=== PATIENT | female | born 1960 | race African-American/Black ===

== ENCOUNTER 2017-05-24 16:11 | Inpatient (IN) | payer OTHER ==
[2017-05-24] VITALS (8 sets, daily range): BP systolic 198–247; BP diastolic 82–116; PULSE 53–76; RESP 16–23; TEMP 98.4; O2SAT 98–100
[~2017-05-24] VITALS: Ht 167.6 cm; Wt 121.0 kg
[2017-05-24] MEDS ORDERED: VANCOMYCIN INJ 1,000 MG in SODIUM CHLOR 0.9% 250 ML INJ 250 ML IV ONE (19:30)
[2017-05-24] MEDS ORDERED: SODIUM CHLORIDE 0.9% FLUSH 10 ML FLUSH IV FLUSH PRN ×2 (19:30→22:00)
--- NOTE | 2017-05-24 19:47 | RADRPT ---
EXAM DATE/TIME: 05/24/2017 19:30 [facility] COMPARISON: No previous studies available for comparison. INDICATIONS : Ulcer to lateral lower leg. Possible Osteomyelitis. MEDICAL HISTORY : Diabetes mellitus type I. SURGICAL HISTORY : None. ENCOUNTER: Initial ACUITY: 1 month PAIN SCORE: 7/10 LOCATION: Right lateral FINDINGS: Two view examination of the right tibia demonstrates no evidence of fracture or dislocation. There i s soft tissue injury in the lateral distal calf region. No significant periosteal reaction or bony er osion. Bony mineralization is normal. The soft tissue structures are intact. CONCLUSION: 1. No plain radiograph evidence for osteomyelitis as questioned. Kenney Bolanos MD on May 24, 2017 at 19:45 Board Certified Radiologist. This report was verified electronically.
--- NOTE | 2017-05-24 20:37 | PD ---
HPI Chief Complaint: Skin Problem Time Seen by Provider: 19:13 Travel History International Travel<30 days: No Contact w/Intl Traveler<30days: No Traveled to known affect area: No History of Present Illness HPI 57-year-old female with history of hypertension, insulin-dependent diabetes, here for evaluation of right leg wound. The patient reports that the wound started in November 2016 after a scratch, and has progressively become larger. She went to an urgent care facility today to have it evaluated and was sent here. Patient reports that the pain is 5 out of 10, constant, worse at night' s. She denies any fevers or chills. No other wounds. PFSH Past Medical History Diabetes: Yes Social History Tobacco Use: No Allergies-Medications (Allergen,Severity, Reaction): Coded Allergies: amlodipine (Verified Allergy, Unknown, 05/24/17) Reported Meds & Prescriptions Reported Meds & Active Scripts Active Reported Quinapril (Quinapril HCl) 5 Mg Tab 5 Mg PO BID Diltiazem (Diltiazem HCl) 60 Mg Tab 60 Mg PO QID Lantus Inj (Insulin Glargine) 1,000 Unit/10 Ml Vial 34 Units SQ HS Humalog Inj (Insulin Human Lispro) 1,000 Unit/10 Ml Vial 2-12 Units SQ ACHS Max dose at bedtime:( )units; sugars < 70,(0)units; sugars 150-199,(2)units; sugars 200-249,(4)units; sugars 250-299,(7)units; sugars 300-349,(10)units; sugars more than 349,(12)units. Hydrochlorothiazide 50 Mg Tab 50 Mg PO DAILY Synthroid (Levothyroxine Sodium) 175 Mcg Tab 175 Mcg PO DAILY Metformin (Metformin HCl) 1,000 Mg Tab 1,000 Mg PO BIDPC Review of Systems Except as stated in HPI: all other systems reviewed are Neg Physical Exam Narrative GENERAL: Well-developed, well-nourished, comfortable, no apparent distress. SKIN: Focused skin assessment warm/dry. Approximately 5x6 cm circular ulcerative wound to the right lateral/distal leg with purulent drainage with mild surrounding warmth and erythema, no crepitus. HEAD: Atraumatic. Normocephalic. EYES: Pupils equal and round. No scleral icterus. No injection or drainage. ENT: Mucous membranes pink and moist. NECK: Trachea midline. No JVD. CARDIOVASCULAR: Regular rate and rhythm. No murmur appreciated. RESPIRATORY: No accessory muscle use. Clear to auscultation. Breath sounds equal bilaterally. GASTROINTESTINAL: Abdomen soft, non-tender, nondistended. MUSCULOSKELETAL: No obvious deformities. No clubbing. No cyanosis. No edema. NEUROLOGICAL: Awake and alert. No obvious cranial nerve deficits. Motor grossly within normal limits. Normal speech. PSYCHIATRIC: Appropriate mood and affect; insight and judgment normal. Data Data Last Documented VS Vital Signs Date Time Temp Pulse Resp B/P (MAP) Pulse Ox O2 Delivery O2 Flow Rate FiO2 05/24/17 21:49 64 18 100 Room Air 220/116 (150) 05/24/17 16:12 98.4 Orders Orders Complete Blood Count With Diff (05/24/17 19:20) Comprehensive Metabolic Panel (05/24/17 19:20) Prothrombin Time / Inr (Pt) (05/24/17 19:20) Act Partial Throm Time (Ptt) (05/24/17 19:20) Iv Access Insert/Monitor (05/24/17 19:20) Ecg Monitoring (05/24/17 19:20) Oximetry (05/24/17 19:20) Sodium Chloride 0.9% Flush (Ns Flush) (05/24/17 19:30) Wound Culture And Gram Stain (05/24/17 19:20) Westergren Sedimentation Rate (05/24/17 19:20) C-Reactive Protein (Crp) (05/24/17 19:20) Tibia/Fibula (Ap/Lat) (05/24/17 ) Vancomycin Inj (Vancomycin Inj) (05/24/17 19:30) Hydralazine Inj (Apresoline Inj) (05/24/17 22:00) Bedside Glucose KATRINA.CSUGAR (05/24/17 21:47) Blood Glucose Goal (Criteria) (05/24/17 21:47) Hypoglycemia 70 Mg/Dl Or < (05/24/17 21:47) Notify Dr: Other (05/24/17 21:47) Dextrose 50% In Casie (Vial) Inj (D50w (Vi (05/24/17 22:00) Glucagon Inj (Glucagon Inj) (05/24/17 22:00) Insulin Aspart Supplemtl Scale (Novolog (2/24/18 08:00) Vancomycin Consult Pharmacy (Vancomycin (05/24/17 22:00) Cefepime Inj (Maxipime Inj) (05/24/17 22:00) Place In Observation (05/24/17 ) Vital Signs (Adult) Q4H (05/24/17 21:47) Activity Oob With Assistance (05/24/17 21:47) Intake + Output KATRINA.QSHIFT (05/24/17 21:47) Diet 1800 Ada Cons Carb (05/25/17 Breakfast) Sodium Chloride 0.9% Flush (Ns Flush) (05/24/17 22:00) Sodium Chloride 0.9% Flush (Ns Flush) (05/25/17 09:00) Ondansetron Inj (Zofran Inj) (05/24/17 22:00) Comprehensive Metabolic Panel (05/25/17 06:00) Complete Blood Count With Diff (05/25/17 06:00) Case Management Consult (05/24/17 21:47) Consult Wound / Ostomy Nurse (05/24/17 21:47) Heparin Inj (Heparin Inj) (05/25/17 09:00) Acetaminophen (Tylenol) (05/24/17 22:00) Acetamin-Hydrocod 325-5 Mg ([place] 5-325 (05/24/17 22:00) Morphine Inj (Morphine Inj) (05/24/17 22:00) Docusate Sodium-Senna (Donna-Colace) (05/25/17 09:00) Magnesium Hydroxide Liq (Milk Of Magnesi (05/24/17 22:00) Sennosides (Senokot) (05/24/17 22:00) Bisacodyl Supp (Dulcolax Supp) (05/24/17 22:00) Lactulose Liq (Lactulose Liq) (05/24/17 22:00) Diltiazem (Cardizem) (05/25/17 09:00) Hydrochlorothiazide (Hydrodiuril) (05/25/17 09:00) Metformin (Glucophage) (05/25/17 09:00) Lisinopril (Prinivil) (05/25/17 09:00) Levothyroxine (Synthroid) (05/25/17 06:00) Admit Order (Ed Use Only) (05/24/17 21:50) Insulin Detemir Inj (Levemir Inj) (05/24/17 22:00) Labs Laboratory Tests Test 05/24/17 20:31 White Blood Count 7.7 TH/MM3 Red Blood Count 4.53 MIL/MM3 Hemoglobin 13.0 GM/DL Hematocrit 39.0 % Mean Corpuscular Volume 86.1 FL Mean Corpuscular Hemoglobin 28.7 PG Mean Corpuscular Hemoglobin Concent 33.3 % Red Cell Distribution Width 14.8 % Platelet Count 446 TH/MM3 Mean Platelet Volume 7.8 FL Neutrophils (%) (Auto) 54.0 % Lymphocytes (%) (Auto) 34.5 % Monocytes (%) (Auto) 7.3 % Eosinophils (%) (Auto) 3.4 % Basophils (%) (Auto) 0.8 % Neutrophils # (Auto) 4.2 TH/MM3 Lymphocytes # (Auto) 2.7 TH/MM3 Monocytes # (Auto) 0.6 TH/MM3 Eosinophils # (Auto) 0.3 TH/MM3 Basophils # (Auto) 0.1 TH/MM3 CBC Comment DIFF FINAL Differential Comment Erythrocyte Sedimentation Rate 13 mm/hr Prothrombin Time 10.1 SEC Prothromb Time International Ratio 1.0 RATIO Activated Partial Thromboplast Time 24.1 SEC Blood Urea Nitrogen 12 MG/DL Creatinine 0.90 MG/DL Random Glucose 80 MG/DL Total Protein 8.0 GM/DL Albumin 4.0 GM/DL Calcium Level 9.5 MG/DL Alkaline Phosphatase 104 U/L Aspartate Amino Transf (AST/SGOT) 14 U/L Alanine Aminotransferase (ALT/SGPT) 21 U/L Total Bilirubin 0.3 MG/DL Sodium Level 139 MEQ/L Potassium Level 3.3 MEQ/L Chloride Level 103 MEQ/L Carbon Dioxide Level 31.1 MEQ/L Anion Gap 5 MEQ/L Estimat Glomerular Filtration Rate 78 ML/MIN C-Reactive Protein 0.82 MG/DL [facility] Medical Decision Making Medical Screen Exam Complete: Yes Emergency Medical Condition: Yes Differential Diagnosis Diabetic foot wound, osteomyelitis, cellulitis Narrative Course Initial vital signs show heart rate 63, blood pressure 231/98, pulse ox 99% on room air, oral temp of 98.4 from a. CBC is essentially unremarkable. CMP is remarkable for potassium 3.3, otherwise unremarkable. ESR is 13. CRP is 0.82. Right tib-fib x-ray: No plain radiograph evidence for osteomyelitis. The patient was given a dose of IV vancomycin. She does have a pretty significant sized ulceration to her right distal leg with mild surrounding warmth and erythema as well as some purulent drainage. There is moderate tenderness around the wound. There is no crepitus. Patient also has a significantly high blood pressure. She is not displaying any signs or symptoms of hypertensive crisis. Patient will be admitted for further IV antibiotic therapy, blood pressure control, and likely podiatry consultation regarding her diabetic leg wound. Case discussed with hospitalist Dr. Prieto who will admit the patient to her service. Diagnosis Primary Impression: Diabetic leg ulcer Additional Impression: Uncontrolled hypertension Admitting Information Admitting Physician Requests: Observation Cole Valencia MD May 24, 2017 20:37
[2017-05-24 21:01] LABS: AUTOMATED NEUTROPHIL # 4.2 TH/MM3 (1.8-7.7); BASOPHIL # 0.1 TH/MM3 (0-0.2); BASOPHIL % 0.8 % (0.0-2.0); EOSINOPHIL # 0.3 TH/MM3 (0-0.4); EOSINOPHIL % 3.4 % (0.0-4.0); LYMPH % 34.5 % (9.0-44.0); LYMPHOCYTE # 2.7 TH/MM3 (1.0-4.8); MEAN CELL VOLUME 86.1 FL (80.0-100.0); MEAN CORPUSCULAR HEMOGLOBIN 28.7 PG (27.0-34.0); MEAN CORPUSCULAR HGB CONC 33.3 % (32.0-36.0); MEAN PLATELET VOLUME 7.8 FL (7.0-11.0); MONO % 7.3 % (0.0-8.0); MONOCYTE # 0.6 TH/MM3 (0-0.9); PLATELET COUNT 446 TH/MM3 (150-450); RED BLOOD COUNT 4.53 MIL/MM3 (4.00-5.30); RED CELL DISTRIBUTION WIDTH 14.8 % (11.6-17.2); WHITE BLOOD COUNT 7.7 TH/MM3 (4.0-11.0)
[2017-05-24] MEDS ORDERED: LANTUS2P SQ (21:04)
[2017-05-24] MEDS ORDERED: HYDR50TA3 PO (21:04)
[2017-05-24] MEDS ORDERED: HUMALOG SQ (21:04)
[2017-05-24] MEDS ORDERED: METF1000 PO (21:04)
[2017-05-24] MEDS ORDERED: SYNT175T PO (21:04)
[2017-05-24] MEDS ORDERED: QUIN5TAB6 PO (21:04)
[2017-05-24] MEDS ORDERED: DILT60TA PO (21:04)
[2017-05-24 21:09] LABS: PROTHROMBIN TIME - PATIENT 10.1 SEC (9.8-11.6)
[2017-05-24 21:15] LABS: BICARBONATE 31.1 MEQ/L (21.0-32.0); BLOOD UREA NITROGEN 12 MG/DL (7-18); CALCIUM 9.5 MG/DL (8.5-10.1); CHLORIDE 103 MEQ/L (98-107); GLOMERULAR FILTRATION RATE 78 ML/MIN (>89); GLUCOSE,RANDOM 80 MG/DL (74-106); SODIUM (NA) 139 MEQ/L (136-145)
[2017-05-24 21:17] LABS: ALT (GPT) 21 U/L (10-53); AST (GOT) 14 U/L (15-37); C-REACTIVE PROTEIN 0.82 MG/DL (0.00-0.30)
[2017-05-24 21:19] LABS: ALKALINE PHOSPHATASE 104 U/L (45-117); TOTAL BILIRUBIN ADULT 0.3 MG/DL (0.2-1.0)
--- NOTE | 2017-05-24 21:50 | HHI.HP ---
HPI Service [facility] Primary Care Physician No Primary Care Physician Admission Diagnosis Diagnoses: (1) Diabetic foot infection Diagnosis: Principal (2) HTN (hypertension) Diagnosis: Principal (3) DM (diabetes mellitus) Diagnosis: Principal Travel History International Travel<30 Days: No Contact w/Intl Traveler <30 Da: No Traveled to Known Affected Are: No History of Present Illness This is a 57-year-old female with a PMH of HTN and DM who presented to the ER with complaints of right leg wound x2-3 months. States symptoms have been intermittent over the last several months, has not sought medical attention until now. Denies fever or chills. States she was seen at Urgent Care today and referred to the ER. Reports associated leg pain, sharp, intermittent, 6/10 , non-radiating, worse w/ movement/touch. On arrival, BP 240/105, HR 59, O2 sat 98% on RA, Afebrile. CBC unremarkable. Chemistry essentially unremarkable. CRP 0.82. I 1.0. Tib-fib X-ray with no evidence of osteoarthritis. S/p Vanc in ER. Review of Systems Except as stated in HPI: all other systems reviewed are Neg ROS: 14 point review of systems otherwise negative. Past Family Social History Past Medical History PMH: HTN and DM Past Surgical History PAST SURGICAL HISTORY: None Allergies: Coded Allergies: amlodipine (Verified Allergy, Unknown, 05/24/17) Family History PAST FAMILY HISTORY: Reviewed. No h/o DM or CAD Social History PAST SOCIAL HISTORY: Negative for alcohol, tobacco or drugs. Physical Exam Vital Signs Vital Signs Date Time Temp Pulse Resp B/P (MAP) Pulse Ox O2 Delivery O2 Flow Rate FiO2 05/24/17 21:04 61 23 229/104 (145) 100 Room Air 05/24/17 20:44 59 16 240/105 (150) 98 Room Air 05/24/17 20:13 76 16 98 Room Air 05/24/17 16:12 98.4 63 16 231/98 (142) 99 Room Air Physical Exam PE: GENERAL: Very pleasant middle-aged white female in no acute distress. HEENT: PERRLA, EOMI. No scleral icterus or conjunctival pallor. No lid lag or facial droop. CARDIOVASCULAR: Regular rate and rhythm. No obvious murmurs to auscultation. No chest tenderness to palpation. RESPIRATORY: No obvious rhonchi or wheezing. Clear to auscultation. Breath sounds equal bilaterally. GASTROINTESTINAL: Abdomen soft, non-tender, nondistended. BS normal. MUSCULOSKELETAL: Extremities without clubbing, cyanosis, or edema. No obvious deformities. RLE w/ ulcer, surrounding erythema, purulent drainage. Pulses intact. NEUROLOGICAL: Awake, alert and oriented x4. No focal neurologic deficits. Moving both upper and lower extremities spontaneously. Laboratory Laboratory Tests Test 05/24/17 20:31 White Blood Count 7.7 Red Blood Count 4.53 Hemoglobin 13.0 Hematocrit 39.0 Mean Corpuscular Volume 86.1 Mean Corpuscular Hemoglobin 28.7 Mean Corpuscular Hemoglobin Concent 33.3 Red Cell Distribution Width 14.8 Platelet Count 446 Mean Platelet Volume 7.8 Neutrophils (%) (Auto) 54.0 Lymphocytes (%) (Auto) 34.5 Monocytes (%) (Auto) 7.3 Eosinophils (%) (Auto) 3.4 Basophils (%) (Auto) 0.8 Neutrophils # (Auto) 4.2 Lymphocytes # (Auto) 2.7 Monocytes # (Auto) 0.6 Eosinophils # (Auto) 0.3 Basophils # (Auto) 0.1 CBC Comment DIFF FINAL Differential Comment Erythrocyte Sedimentation Rate 13 Prothrombin Time 10.1 Prothromb Time International Ratio 1.0 Activated Partial Thromboplast Time 24.1 Blood Urea Nitrogen 12 Creatinine 0.90 Random Glucose 80 Total Protein 8.0 Albumin 4.0 Calcium Level 9.5 Alkaline Phosphatase 104 Aspartate Amino Transf (AST/SGOT) 14 Alanine Aminotransferase (ALT/SGPT) 21 Total Bilirubin 0.3 Sodium Level 139 Potassium Level 3.3 Chloride Level 103 Carbon Dioxide Level 31.1 Anion Gap 5 Estimat Glomerular Filtration Rate 78 C-Reactive Protein 0.82 Date/Time Source Procedure Growth Status 05/24/17 20:31 Wound Leg Gram Stain Pending Received 05/24/17 20:31 Wound Leg Wound Culture Pending Received Result Diagram: 05/24/17203005/24/172030 Caprindouglas VTE Risk Assessment Caprini VTE Risk Assessment: No/Low Risk (score <= 1) Caprini Risk Assessment Model Point Value = 1 Point Value = 2 Point Value = 3 Point Value = 5 Age 41-60 Minor surgery BMI > 25 kg/m2 Swollen legs Varicose veins or History of unexplained or recurrent spontaneous Oral contraceptives or hormone replacement Sepsis (< 1 month) Serious lung disease, including pneumonia (< 1 month) Abnormal pulmonary function Acute myocardial infarction Congestive heart failure (< 1 month) History of inflammatory bowel disease Medical patient at bed rest Age 61-74 Arthroscopic surgery Major open surgery (> 45 min) Laparoscopic surgery (> 45 min) Malignancy Confined to bed (> 72 hours) Immobilizing plaster cast Central venous access Age >= 75 History of VTE Family history of VTE Factor V Leiden Prothrombin [id number] Lupus anticoagulant Anticardiolipin antibodies Elevated serum homocysteine Heparin-induced thrombocytopenia Other congenital or acquired thrombophilia Stroke (< 1 month) Elective arthroplasty Hip, pelvis, or leg fracture Acute spinal cord injury (< 1 month) Prophylaxis Regimen Total Risk Factor Score Risk Level Prophylaxis Regimen 0-1 Low Early ambulation 2 Moderate Order ONE of the following: *Sequential Compression Device (SCD) *Heparin 5000 units SQ BID 3-4 Higher Order ONE of the following medications: *Heparin 5000 units SQ TID *Enoxaparin/Lovenox 40 mg SQ daily (WT < 150 kg, CrCl > 30 mL/min) *Enoxaparin/Lovenox 30 mg SQ daily (WT < 150 kg, CrCl > 10-29 mL/min) *Enoxaparin/Lovenox 30 mg SQ BID (WT < 150 kg, CrCl > 30 mL/min) AND/OR *Sequential Compression Device (SCD) 5 or more Highest Order ONE of the following medications: *Heparin 5000 units SQ TID (Preferred with Epidurals) *Enoxaparin/Lovenox 40 mg SQ daily (WT < 150 kg, CrCl > 30 mL/min) *Enoxaparin/Lovenox 30 mg SQ daily (WT < 150 kg, CrCl > 10-29 mL/min) *Enoxaparin/Lovenox 30 mg SQ BID (WT < 150 kg, CrCl > 30 mL/min) AND *Sequential Compression Device (SCD) Assessment and Plan Problem List: (1) Diabetic foot infection ICD Code: E11.69 - Type 2 diabetes mellitus with other specified complication; L08.9 - Local infection of the skin and subcutaneous tissue, unspecified (2) HTN (hypertension) ICD Code: I10 - Essential (primary) hypertension (3) DM (diabetes mellitus) ICD Code: E11.9 - Type 2 diabetes mellitus without complications Assessment and Plan A/P: 1. Diabetic Foot Infection: ulcer w/ surrounding cellulitis, ongoing for approx 2-3mo per patient. Tib-Fib X-ray negative for Osteomyelitis, images reviewed by me. Afebrile, no leukocytosis. Follow up Wound Culture, Continue IV Abx, Wound Management consult for further eval/treatment. 2. HTN: Uncontrolled. BP 230-240's systolic, reports compliance w/ medications, states has no PCP but has 3mo prescription from last visit. S/p Hydralazine w/ persistent hypertension. Hydralazine 10mg IV x1 now, resume home medications, monitor BP. 3. DM: Sliding scale w/ Accu-Cheks, resume home Metformin and Insulin. 4. DVT Prophylaxis: Heparin sq 5. Social work for d/c planning as needed. 6. Case discussed w/ ER physician at length, labs/records/imaging reviewed by me. Darlyn Prieto MD May 24, 2017 21:50
[2017-05-24] MEDS ORDERED: GADODIAMIDE PF 287 MG/ML 20 ML VIAL (for RAD MRI) IVCONTRAST ONE (21:53)
[2017-05-24] MEDS ORDERED: DEXTROSE 50% IN WATER 50 ML VIAL(D50) IV PUSH PRN (22:00)
[2017-05-24] MEDS ORDERED: GLUCAGON 1 MG/ML VIAL OTHER PRN (22:00)
[2017-05-24] MEDS ORDERED: Vancomycin Consult Pharmacy 1 EA OTHER SCH (22:00)
[2017-05-24] MEDS ORDERED: ONDANSETRON HCL 4 MG/2 ML VIAL IVP PRN (22:00)
[2017-05-24] MEDS ORDERED: MAGNESIUM HYDROXIDE SUSP 30 ML CUP PO PRN (22:00)
[2017-05-24] MEDS ORDERED: BISACODYL 10 MG SUPP RECTAL PRN (22:00)
[2017-05-24] MEDS ORDERED: hydrALAZINE HCL 20 MG/ML VIAL IV PUSH ONE (22:00)
[2017-05-24] MEDS ORDERED: LACTULOSE SYRUP 20 GM/30 ML CUP PO PRN (22:00)
[2017-05-24] MEDS ORDERED: SENNOSIDES 8.6 MG TAB PO PRN (22:00)
[2017-05-24] MEDS ORDERED: MORPHINE SULFATE 2 MG/ML INJ IV PUSH PRN (22:00)
[2017-05-24] MEDS: CEFEPIME INJ 1,000 MG in SODIUM CHLORIDE 0.9% INJ 100 ML IV SCH (22:10)
[2017-05-24] MEDS: INSULIN DETEMIR 100 UNITS/ML VIAL SQ SCH (22:11)
[2017-05-25] VITALS (10 sets, daily range): BP systolic 160–182; BP diastolic 40–84; PULSE 64–82; RESP 16–20; TEMP 97.9–98.5; O2SAT 95–100
[2017-05-25] MEDS ORDERED: hydrALAZINE HCL 20 MG/ML VIAL IV PUSH ONE
[2017-05-25] MEDS ORDERED: ENALAPRILAT 2.5 MG/2 ML VIAL IV PUSH ONE (04:00)
[2017-05-25] MEDS: ACETAMINOPHEN 325 MG TAB PO PRN (04:40)
[2017-05-25] MEDS: VANCOMYCIN INJ 1,750 MG in SODIUM CHLORID 0.9% 500 ML INJ 500 ML IV SCH (04:41)
[2017-05-25] MEDS: LEVOTHYROXINE SODIUM 150 MCG TAB PO SCH (06:29)
[2017-05-25] MEDS: LEVOTHYROXINE SODIUM 25 MCG TAB PO SCH (06:29)
[2017-05-25] MEDS: INSULIN ASPART SUPPLEMENTAL SCALE SQ SCH ×4 (08:31→21:08)
[2017-05-25 08:35] LABS: ALBUMIN 3.3 GM/DL (3.4-5.0); ALKALINE PHOSPHATASE 85 U/L (45-117); ALT (GPT) 19 U/L (10-53); AST (GOT) 14 U/L (15-37); BICARBONATE 25.8 MEQ/L (21.0-32.0); BLOOD UREA NITROGEN 15 MG/DL (7-18); CALCIUM 8.6 MG/DL (8.5-10.1); CHLORIDE 103 MEQ/L (98-107); GLOMERULAR FILTRATION RATE 89 ML/MIN (>89); GLUCOSE,RANDOM 139 MG/DL (74-106); SODIUM (NA) 137 MEQ/L (136-145); TOTAL BILIRUBIN ADULT 0.4 MG/DL (0.2-1.0); TOTAL PROTEIN 6.9 GM/DL (6.4-8.2)
[2017-05-25] MEDS: DILTIAZEM HCL 60 MG TAB PO SCH ×4 (09:24→21:07)
[2017-05-25] MEDS: DOCUSATE SODIUM 50 MG/SENNA 8.6 MG TAB PO SCH ×2 (09:24→20:50)
[2017-05-25] MEDS: metFORMIN HCL 500 MG TAB PO SCH ×2 (09:26→18:56)
[2017-05-25] MEDS: LISINOPRIL 5 MG TAB PO SCH ×2 (09:27→21:08)
[2017-05-25] MEDS: HYDROCHLOROTHIAZIDE 50 MG TAB PO SCH (09:28)
[2017-05-25] MEDS: SODIUM CHLORIDE 0.9% FLUSH 10 ML FLUSH IV FLUSH SCH ×2 (09:28→20:49)
[2017-05-25] MEDS: HEPARIN SODIUM - SQ 10,000 UNITS/ML VIAL SQ SCH ×2 (09:29→21:07)
[2017-05-25] MEDS: CEFEPIME INJ 1,000 MG in SODIUM CHLORIDE 0.9% INJ 100 ML IV SCH ×2 (09:30→23:34)
[2017-05-25] MEDS ORDERED: POTASSIUM CHLORIDE 10 MEQ CONTROLLED RELEASE TAB PO ONE (11:00)
[2017-05-25] MEDS ORDERED: DILT0.05 PO (13:17)
--- NOTE | 2017-05-25 13:20 | HHI.PR ---
Subjective Remarks Follow up right lower leg wound. Patient reports pain in the right lower leg. No fever/chills. Denies chest pain, dyspnea. Objective Vitals Vital Signs Date Time Temp Pulse Resp B/P (MAP) Pulse Ox O2 Delivery O2 Flow Rate FiO2 05/25/17 12:12 98.3 72 20 160/40 (80) 96 05/25/17 08:02 71 05/25/17 07:39 98.4 71 16 160/76 (104) 97 05/25/17 03:16 98.1 76 17 173/68 (103) 95 05/25/17 02:34 05/25/17 02:08 167/70 (102) 05/25/17 01:00 82 18 182/84 (116) 100 Room Air 05/25/17 00:19 71 182/81 (114) 05/24/17 23:30 69 18 198/82 (120) 100 Room Air 05/24/17 22:43 75 18 205/92 (129) 100 Room Air 05/24/17 22:01 53 247/109 (155) 05/24/17 21:49 64 18 100 Room Air 220/116 (150) 05/24/17 21:04 61 23 229/104 (145) 100 Room Air 05/24/17 20:44 59 16 240/105 (150) 98 Room Air 05/24/17 20:13 76 16 98 Room Air 05/24/17 16:12 98.4 63 16 231/98 (142) 99 Room Air I/O 05/24/17 05/24/17 05/24/17 05/25/17 05/25/17 05/25/17 07:00 15:00 23:00 07:00 15:00 23:00 Intake Total 95 ml Balance 95 ml Intake IV Total 95 ml Result Diagram: 05/24/17203005/25/17 0705 Imaging Last Impressions Tibia/Fibula X-Ray 05/24/17 0000 Signed Impressions: Service Date/Time: Wednesday, May 24, 2017 19:30 - CONCLUSION: 1. No plain radiograph evidence for osteomyelitis as questioned. Kenney Bloanos MD Objective Remarks General: No acute distress. Heart: Regular rate and rhythm. No murmur. Lungs: Clear to auscultation bilaterally. No wheezes, rales, or rhonchi. Breathing is nonlabored. Abdomen: Soft, nontender, nondistended. Extremities: No lower extremity edema. Lateral right lower leg ulcer with pustular drainage. Psych: Alert and oriented. Procedures Last Impressions Tibia/Fibula X-Ray 05/24/17 0000 Signed Impressions: Service Date/Time: Wednesday, May 24, 2017 19:30 - CONCLUSION: 1. No plain radiograph evidence for osteomyelitis as questioned. Kenney Bolanos MD Urinary Catheter: No Vascular Central Line Catheter: No A/P Problem List: (1) Diabetic foot infection ICD Code: E11.69 - Type 2 diabetes mellitus with other specified complication; L08.9 - Local infection of the skin and subcutaneous tissue, unspecified (2) HTN (hypertension) ICD Code: I10 - Essential (primary) hypertension (3) DM (diabetes mellitus) ICD Code: E11.9 - Type 2 diabetes mellitus without complications Assessment and Plan 1. Ulcerative lesion, right lower extremity: This is been present for 2-3 months. X-ray shows no sign of osteomyelitis. Wound culture pending. Continue IV antibiotics. Wound care consult pending. Consult podiatry. 2. Hypertension: Poorly controlled. Continue diltiazem, HCTZ, lisinopril. 3. Diabetes mellitus: Monitor Accu-Cheks and cover with sliding scale insulin. Continue Levemir, metformin. 4. DVT prophylaxis: Heparin. Ghulam Nelson MD May 25, 2017 13:20
[2017-05-25 17:02] LABS: BASOPHIL % 0.4 % (0.0-2.0); EOSINOPHIL # 0.1 TH/MM3 (0-0.4); EOSINOPHIL % 1.1 % (0.0-4.0); HEMATOCRIT 35.1 % (35.0-46.0); HEMOGLOBIN 12.2 GM/DL (11.6-15.3); LYMPHOCYTE # 2.1 TH/MM3 (1.0-4.8); MEAN CELL VOLUME 85.4 FL (80.0-100.0); MEAN CORPUSCULAR HEMOGLOBIN 29.7 PG (27.0-34.0); MEAN CORPUSCULAR HGB CONC 34.8 % (32.0-36.0); MEAN PLATELET VOLUME 7.4 FL (7.0-11.0); MONO % 7.5 % (0.0-8.0); MONOCYTE # 0.6 TH/MM3 (0-0.9); PLATELET COUNT 369 TH/MM3 (150-450); RED BLOOD COUNT 4.11 MIL/MM3 (4.00-5.30); WHITE BLOOD COUNT 7.7 TH/MM3 (4.0-11.0)
--- NOTE | 2017-05-25 18:28 | RADRPT ---
EXAM DATE/TIME: 05/25/2017 17:34 [facility] COMPARISON: TIBIA/FIBULA RIGHT (AP/LAT), May 24, 2017, 19:30. INDICATIONS : Ulcer right ankle. CONTRAST: 20 cc Omniscan (gadodiamide) IV MEDICAL HISTORY : Hypertension. Diabetes mellitus type 2. SURGICAL HISTORY : None. ENCOUNTER: Initial ACUITY: 1 day PAIN SCORE: 0/10 LOCATION: Right ankle TECHNIQUE: Multiplanar, multisequence MRI examination was performed without contrast and after the intravenous a dministration of gadolinium. FINDINGS: Skin markers were placed at the cranial and caudal aspect of a right lateral distal leg wound. In thi s area there is skin thickening and subcutaneous edema and enhancement standing along the lateral asp ect of the foot characteristic of a cellulitis. There is also subtle edema and enhancement along the superficial posterior aspect of the pronators longus muscle and there is mild extension of edema and enhancement between the peroneus longus muscle and the soleus and lateral head of the gastrocnemius m uscle. There is mild edema and enhancement extends to abut the posterior aspect of the fibula. Howeve r, both the fibula and tibia demonstrate normal signal intensity and no cortical abnormality is ident ified. The tibialis posterior demonstrates no abnormality in the muscles in the anterior compartment are within normal limits. No fluid collection is present. CONCLUSION: 1. There is subcutaneous edema and enhancement along the lateral aspect of the distal leg adjacent to the area of open wound characteristic of a cellulitis. 2. There is subtle edema and enhancement of the superficial fibers of the peroneus longus muscle and there is mild edema and enhancement extending between the peroneal muscles, the soleus and lateral he ad of gastrocnemius muscle. This edema and enhancement abuts the posterior aspect of the fibula. Ross tarce, there are no findings to indicate osteomyelitis. 3. No drainable fluid collection or abscess is present. Phil Wiggins MD on May 25, 2017 at 18:18 Board Certified Radiologist. This report was verified electronically.
--- NOTE | 2017-05-25 18:33 | MB ---
cc: LYNDSEY SHARMA DPM DATE OF CONSULTATION: 05/25/2017. REASON FOR CONSULTATION: Right distal lateral ankle ulcer, possible infection. HISTORY OF PRESENT ILLNESS: This is a pleasant 57-year-old female who has a history of a small isolated minimally traumatic injury to the outside of the right ankle sometime within the last four to six months. It was not getting better in that it became significantly worsened over the last week or so. The patient does have a history of diabetes and hypertension. She does not have a primary care doctor in this area. She is currently seen bedside. She is having pain with pressure to the area but no significant discomfort noted. PAST MEDICAL HISTORY: 1. Hypertension. 2. Diabetes. ALLERGIES: AMLODIPINE. INPATIENT MEDICATIONS: 1. Vancomycin. 2. Cefepime. Please see the complete medication list in the chart. PHYSICAL EXAMINATION VITAL SIGNS: Temperature 98.3, pulse rate 72, respiratory rate is 20, blood pressure is 160/40, she is satting 96% on room air. GENERAL: This is an alert and oriented female exhibiting nonlabored respirations. She is verbally appropriate. RIGHT LOWER EXTREMITY: The right lower extremity is examined. There is noted to be a mainly fibrotic wound measuring approximately 3 x 4 cm of the distal lateral ankle. There is no bone involvement or bone exposed. There are red beefy granular edges at the central portion of the wound noted to be fibrotic. There is no odor. There is pain upon attempting to squeeze or palpate this area. No purulence noted. The calf is soft. The anterior tibial compartment and lateral compartments appear to be soft. The area immediately surrounding the fibrotic ulcer is indurated and slightly warm. Distal pulses are palpated. Sensation is intact to light touch and deep pressure. There is good range of motion of the hindfoot and ankle. LABORATORY STUDIES: White blood cells 7.7, hemoglobin and hematocrit 13 and 39, platelet count is 446,000. Erythrocyte sedimentation rate is 13. Chem-7: Sodium is 137, potassium 3.3, chloride 103, carbon dioxide 25.8, BUN 15, creatinine 0.8, glucose is 139. Wound culture is growing Staph aureus from the distal leg. IMAGING STUDIES: Tibia and fibula x-rays reported as normal. MRI ordered and pending. ASSESSMENT AND PLAN: Right distal leg ulcer with focal versus deep infection. MRI ordered. This possibly needs debridement versus aggressive wound care. Continue IV antibiotics. Surgery pending MRI. JUDE Siddiqi/SOFIA /3:39 PM /6:23 PM RUBIA
[2017-05-25] MEDS: GENTAMICIN SULFATE 0.1% CREAM 15 GM TOPICAL SCH (18:56)
[2017-05-25] MEDS: INSULIN DETEMIR 100 UNITS/ML VIAL SQ SCH (21:09)
[2017-05-26] VITALS (9 sets, daily range): BP systolic 144–206; BP diastolic 69–92; PULSE 52–75; RESP 18–20; TEMP 97.9–98.6; O2SAT 94–99
[2017-05-26] MEDS: ACETAMINOPHEN 325 MG TAB PO PRN ×2 (00:58→14:06)
[2017-05-26] MEDS: VANCOMYCIN INJ 1,750 MG in SODIUM CHLORID 0.9% 500 ML INJ 500 ML IV SCH ×2 (00:58→17:09)
[2017-05-26] MEDS ORDERED: CHLORHEXIDINE GLUCONATE 2 % 1 PACK (2 CLOTHS) TOPICAL PRN (03:00)
[2017-05-26] MEDS ORDERED: POVIDONE IODINE 5% (ANTISEPSIS KIT) 4 APPLICATIONS EACH NARE PRN (03:00)
[2017-05-26] MEDS ORDERED: LACTATED RINGER'S 1000 ML IV PRN (03:00)
[2017-05-26] MEDS ORDERED: METOPROLOL TARTRATE 25 MG TAB PO PRN (03:00)
[2017-05-26 06:16] LABS: BICARBONATE 29.3 MEQ/L (21.0-32.0); CALCIUM 8.8 MG/DL (8.5-10.1); CREATININE 0.78 MG/DL (0.50-1.00)
[2017-05-26] MEDS: LEVOTHYROXINE SODIUM 25 MCG TAB PO SCH (06:36)
[2017-05-26] MEDS: LEVOTHYROXINE SODIUM 150 MCG TAB PO SCH (06:36)
[2017-05-26] MEDS: INSULIN ASPART SUPPLEMENTAL SCALE SQ SCH ×4 (08:00→21:12)
[2017-05-26] MEDS: metFORMIN HCL 500 MG TAB PO SCH ×2 (08:30→17:10)
[2017-05-26] MEDS: SODIUM CHLORIDE 0.9% FLUSH 10 ML FLUSH IV FLUSH SCH ×2 (08:30→22:33)
[2017-05-26] MEDS: LISINOPRIL 5 MG TAB PO SCH ×2 (08:31→22:36)
[2017-05-26] MEDS: DOCUSATE SODIUM 50 MG/SENNA 8.6 MG TAB PO SCH ×2 (08:31→21:00)
[2017-05-26] MEDS: DILTIAZEM HCL 60 MG TAB PO SCH ×4 (08:31→22:33)
[2017-05-26] MEDS: HYDROCHLOROTHIAZIDE 50 MG TAB PO SCH (08:32)
[2017-05-26] MEDS: GENTAMICIN SULFATE 0.1% CREAM 15 GM TOPICAL SCH (08:32)
[2017-05-26] MEDS: HEPARIN SODIUM - SQ 10,000 UNITS/ML VIAL SQ SCH ×2 (08:32→22:36)
--- NOTE | 2017-05-26 09:14 | EKG ---
Date Performed: 05/26/2017 Time Performed: 05:49:06 PTAGE: 57 years EKG: SINUS BRADYCARDIA EARLY TRANSITION ST/T-WAVE ABNORMALITY, CONSIDER LATERAL ISCHEMIA ABNORMA L ECG NO PREVIOUS TRACING DOCTOR: Kenneth Zuniga Interpretating Date/Time 05/26/2017 09:13:46
[2017-05-26] MEDS ORDERED: KETAMINE HCL 500 MG/5 ML VIAL ONE (09:28)
[2017-05-26] MEDS ORDERED: BUPIVACAINE HCL PF 0.25% 30 ML VIAL INFIL ONE (09:52)
--- NOTE | 2017-05-26 10:25 | PD.OP ---
Operative Report Right ankle ulcer, infection Postoperative Diagnosis: same Procedure: Right ankle incision drainage excisional debridement ulcer with application of wound VAC Anesthesia: Gen. with local Surgeon: Noman Do Bowling Floor Desk Clerk(s): Scrub Operation and Findings: Estimated blood loss less than 10 mL's Tourniquet none Complications none Disposition returned to floor continue wound VAC for 24-48 hours await deep culture before discharge Justification for procedure: Worsening right ankle ulcer and infection in a known diabetic. MRI did not show any osteomyelitis or deep abscess. Plan for debridement wound VAC and control of infection primarily. We will allow the wound to heal secondarily with wound VAC in preparation for possible skin graft at a later date. Procedure in detail: Under mild sedation the patient was brought in the operating room and placed on the operating table in the supine position. Following the induction of general anesthesia the patient's right lower extremity was scrubbed prepped and draped in the usual aseptic fashion. The right lower extremity was examined there is noted to be a mixed fibrotic serous purulent draining lateral ankle ulcer approximately 5-6 cm from the distal lateral malleolus. Wound measurements were approximately 4 x 5 cm. Sharp excisional debridement took place of ulcer utilizing 15 blade and forceps. Superficial tissue was noted to have signs of microabscess incision was made deep there is no signs of involvement of the deep fascia of the muscle or lateral peroneal tendons. 6 O clock deep base tissue biopsy performed with also 12 O clock margin of skin and deep tissue. Utilizing the versa jet the wound was then debrided to viable bleeding tissue. Wound VAC was then applied under adequate seal and suction low continuous 100 mmHg Disposition: Plan for wound VAC change in 1-2 days await final deep culture, orders for home wound VAC made and consult case management for Saturday wound care. Noman Do DPM May 26, 2017 10:25
[2017-05-26] MEDS ORDERED: DO NOT ADM ANY ANTICOAGULANT DRUGS PRN (10:26)
[2017-05-26] MEDS: CEFEPIME INJ 1,000 MG in SODIUM CHLORIDE 0.9% INJ 100 ML IV SCH ×2 (10:45→22:37)
[2017-05-26] MEDS ORDERED: PROPOFOL 200 MG/20 ML AMP IV ONE (12:00)
[2017-05-26] MEDS ORDERED: ONDANSETRON HCL 4 MG/2 ML VIAL IV ONE (12:00)
[2017-05-26] MEDS ORDERED: LIDOCAINE HCL 1% PF 5 ML SYRINGE OTHER ONE (12:00)
--- NOTE | 2017-05-26 12:51 | HHI.PR ---
Subjective Remarks Follow up leg wound. S/P incision & drainage with placement of wound vac. No complaints at this time. Pain is well controlled. Objective Vitals Vital Signs Date Time Temp Pulse Resp B/P (MAP) Pulse Ox O2 Delivery O2 Flow Rate FiO2 05/26/17 12:08 98.0 52 18 161/74 (103) 99 05/26/17 10:50 55 20 98 Nasal Cannula 2 05/26/17 10:45 55 22 145/74 (97) 98 Nasal Cannula 2 05/26/17 10:30 57 16 126/66 (86) 98 Nasal Cannula 2 05/26/17 10:24 98.0 58 14 131/68 (89) 97 2 05/26/17 08:25 61 05/26/17 08:08 98.0 66 20 162/84 (110) 99 05/26/17 04:00 98.2 75 18 175/84 (114) 97 05/26/17 00:00 98.3 64 18 144/69 (94) 99 05/25/17 20:00 98.5 64 18 174/81 (112) 99 05/25/17 17:41 66 05/25/17 16:31 97.9 70 18 180/64 (102) 96 I/O 05/25/17 05/25/17 05/25/17 05/26/17 05/26/17 05/26/17 07:00 15:00 23:00 07:00 15:00 23:00 Intake Total 95 ml 360 ml 500 ml Output Total 5 ml Balance 95 ml 360 ml 495 ml Intake Oral 360 ml IV Total 95 ml Other 500 ml Output Estimated Blood Loss 5 ml # Voids 2 2 1 # Bowel Movements 1 Result Diagram: 05/25/17 1623 05/26/17 0507 Imaging Last Impressions Ankle MRI 05/25/17 0000 Signed Impressions: Service Date/Time: Thursday, May 25, 2017 17:34 - CONCLUSION: 1. There is subcutaneous edema and enhancement along the lateral aspect of the distal leg adjacent to the area of open wound characteristic of a cellulitis. 2. There is subtle edema and enhancement of the superficial fibers of the peroneus longus muscle and there is mild edema and enhancement extending between the peroneal muscles, the soleus and lateral head of gastrocnemius muscle. This edema and enhancement abuts the posterior aspect of the fibula. However, there are no findings to indicate osteomyelitis. 3. No drainable fluid collection or abscess is present. Phil Wiggins MD Tibia/Fibula X-Ray 05/24/17 0000 Signed Impressions: Service Date/Time: Wednesday, May 24, 2017 19:30 - CONCLUSION: 1. No plain radiograph evidence for osteomyelitis as questioned. Kenney Bolanos MD Objective Remarks General: No acute distress. Heart: Regular rate and rhythm. No murmur. Lungs: Clear to auscultation bilaterally. No wheezes, rales, or rhonchi. Breathing is nonlabored. Abdomen: Soft, nontender, nondistended. Extremities: No lower extremity edema. Lateral right lower leg ulcer with wound vac in place. Psych: Alert and oriented. Procedures 05/26/17 I&D right ankle ulcer with wound VAC application Urinary Catheter: No Vascular Central Line Catheter: No A/P Problem List: (1) Diabetic foot infection ICD Code: E11.69 - Type 2 diabetes mellitus with other specified complication; L08.9 - Local infection of the skin and subcutaneous tissue, unspecified (2) HTN (hypertension) ICD Code: I10 - Essential (primary) hypertension (3) DM (diabetes mellitus) ICD Code: E11.9 - Type 2 diabetes mellitus without complications Assessment and Plan 1. Ulcerative lesion, right lower extremity: This is been present for 2-3 months. X-ray shows no sign of osteomyelitis. Wound culture growing Staph aureus. Continue IV antibiotics. Appreciate podiatry recommendations. S/P I& D. Wound vac to be changed in 1-2 days. 2. Hypertension: Continue diltiazem, HCTZ, lisinopril. 3. Diabetes mellitus: Monitor Accu-Cheks and cover with sliding scale insulin. Continue Levemir, metformin. 4. DVT prophylaxis: Heparin. Discharge Planning Transfer to med/surg. Ghulam Nelson MD May 26, 2017 12:51
[2017-05-26] MEDS: ACETAMINOPHEN/HYDROcodone 325 MG/5 MG TAB PO PRN ×2 (17:09→22:50)
[2017-05-26] MEDS: INSULIN DETEMIR 100 UNITS/ML VIAL SQ SCH (21:12)
[2017-05-26] MEDS ORDERED: cloNIDine HCL 0.1 MG TAB PO ONE (23:45)
[2017-05-27] VITALS (8 sets, daily range): BP systolic 154–172; BP diastolic 73–81; PULSE 57–72; RESP 16–18; TEMP 95.8–98.7; O2SAT 93–98
[2017-05-27] MEDS: LEVOTHYROXINE SODIUM 25 MCG TAB PO SCH (05:32)
[2017-05-27] MEDS: LEVOTHYROXINE SODIUM 150 MCG TAB PO SCH (05:32)
[2017-05-27] MEDS: ACETAMINOPHEN/HYDROcodone 325 MG/5 MG TAB PO PRN (05:33)
[2017-05-27] MEDS: INSULIN ASPART SUPPLEMENTAL SCALE SQ SCH ×4 (08:00→21:00)
[2017-05-27] MEDS: metFORMIN HCL 500 MG TAB PO SCH ×2 (08:22→17:13)
[2017-05-27] MEDS: HYDROCHLOROTHIAZIDE 50 MG TAB PO SCH (08:23)
[2017-05-27] MEDS: DOCUSATE SODIUM 50 MG/SENNA 8.6 MG TAB PO SCH ×2 (08:23→21:00)
[2017-05-27] MEDS: GENTAMICIN SULFATE 0.1% CREAM 15 GM TOPICAL SCH (08:23)
[2017-05-27] MEDS: DILTIAZEM HCL 60 MG TAB PO SCH ×4 (08:23→22:30)
[2017-05-27] MEDS: HEPARIN SODIUM - SQ 10,000 UNITS/ML VIAL SQ SCH ×2 (08:23→22:31)
[2017-05-27] MEDS: LISINOPRIL 5 MG TAB PO SCH ×2 (08:23→22:30)
[2017-05-27] MEDS: CEFEPIME INJ 1,000 MG in SODIUM CHLORIDE 0.9% INJ 100 ML IV SCH (08:24)
[2017-05-27] MEDS: SODIUM CHLORIDE 0.9% FLUSH 10 ML FLUSH IV FLUSH SCH ×2 (08:24→22:30)
[2017-05-27] MEDS: VANCOMYCIN INJ 1,750 MG in SODIUM CHLORID 0.9% 500 ML INJ 500 ML IV SCH (09:28)
--- NOTE | 2017-05-27 11:31 | HHI.PR ---
Subjective Remarks Follow up leg wound. No complaints at this time. Tylenol is not working well for her pain and she does not want to take [place]. Requesting Ibuprofen. Objective Vitals Vital Signs Date Time Temp Pulse Resp B/P (MAP) Pulse Ox O2 Delivery O2 Flow Rate FiO2 05/27/17 11:22 98.7 60 16 160/76 (104) 97 05/27/17 08:00 60 05/27/17 07:42 98.3 58 18 154/74 (100) 95 Manual Cuff/Auscultation 05/27/17 03:19 98.1 57 16 157/73 (101) 93 05/26/17 23:24 98.4 69 18 206/92 (130) 94 05/26/17 20:14 98.6 68 18 163/77 (105) 95 05/26/17 16:06 97.9 60 18 175/88 (117) 97 05/26/17 15:18 74 05/26/17 12:08 98.0 52 18 161/74 (103) 99 I/O 05/26/17 05/26/17 05/26/17 05/27/17 05/27/17 05/27/17 07:00 15:00 23:00 07:00 15:00 23:00 Intake Total 500 ml 100 ml Output Total 5 ml Balance 495 ml 100 ml IV Total 100 ml Other 500 ml Output Estimated Blood Loss 5 ml # Voids 2 1 1 # Bowel Movements 1 Result Diagram: 05/25/17 1623 05/26/17 0507 Imaging Last Impressions Ankle MRI 05/25/17 0000 Signed Impressions: Service Date/Time: Thursday, May 25, 2017 17:34 - CONCLUSION: 1. There is subcutaneous edema and enhancement along the lateral aspect of the distal leg adjacent to the area of open wound characteristic of a cellulitis. 2. There is subtle edema and enhancement of the superficial fibers of the peroneus longus muscle and there is mild edema and enhancement extending between the peroneal muscles, the soleus and lateral head of gastrocnemius muscle. This edema and enhancement abuts the posterior aspect of the fibula. However, there are no findings to indicate osteomyelitis. 3. No drainable fluid collection or abscess is present. Phil Wiggins MD Tibia/Fibula X-Ray 05/24/17 0000 Signed Impressions: Service Date/Time: Wednesday, May 24, 2017 19:30 - CONCLUSION: 1. No plain radiograph evidence for osteomyelitis as questioned. Kenney Bolanos MD Objective Remarks General: No acute distress. Heart: Regular rate and rhythm. No murmur. Lungs: Clear to auscultation bilaterally. No wheezes, rales, or rhonchi. Breathing is nonlabored. Abdomen: Soft, nontender, nondistended. Extremities: No lower extremity edema. Lateral right lower leg ulcer with wound vac in place. Psych: Alert and oriented. Procedures 05/26/17 I&D right ankle ulcer with wound VAC application Urinary Catheter: No Vascular Central Line Catheter: No A/P Problem List: (1) Diabetic foot infection ICD Code: E11.69 - Type 2 diabetes mellitus with other specified complication; L08.9 - Local infection of the skin and subcutaneous tissue, unspecified (2) HTN (hypertension) ICD Code: I10 - Essential (primary) hypertension (3) DM (diabetes mellitus) ICD Code: E11.9 - Type 2 diabetes mellitus without complications Assessment and Plan 1. Ulcerative lesion, right lower extremity: This is been present for 2-3 months. X-ray shows no sign of osteomyelitis. Wound culture growing Staph aureus. Adjust IV antibiotics. Appreciate podiatry recommendations. S/P I&D. Wound vac to be changed in 1-2 days per podiatry. 2. Hypertension: Continue diltiazem, HCTZ, lisinopril. 3. Diabetes mellitus: Monitor Accu-Cheks and cover with sliding scale insulin. Continue Levemir, metformin. 4. DVT prophylaxis: Heparin. Discharge Planning Transfer to med/surg. Ghulam Nelson MD May 27, 2017 11:31
[2017-05-27] MEDS ORDERED: PHARMACY ORDERED LAB ONE (11:45)
[2017-05-27] MEDS: LEVOFLOXACIN 750 MG PREMIX INJ 150 ML IV SCH (12:37)
[2017-05-27] MEDS: ENALAPRILAT 1.25 MG/ML VIAL IV PUSH PRN (16:11)
[2017-05-27] MEDS: IBUPROFEN 600 MG TAB PO PRN (17:19)
--- NOTE | 2017-05-27 19:58 | HHI.PR ---
Subjective Remarks Patient seen bedside. Denies any nausea, vomiting, fevers, or chills. Denies any pain to right lower extremity. Denies any calf pain Objective Vital Signs Date Time Temp Pulse Resp B/P (MAP) Pulse Ox O2 Delivery O2 Flow Rate FiO2 05/27/17 17:15 157/78 (104) 05/27/17 15:45 95.8 60 16 172/77 (108) 97 05/27/17 15:00 72 05/27/17 11:22 98.7 60 16 160/76 (104) 97 05/27/17 08:00 60 05/27/17 07:42 98.3 58 18 154/74 (100) 95 Manual Cuff/Auscultation 05/27/17 03:19 98.1 57 16 157/73 (101) 93 05/26/17 23:24 98.4 69 18 206/92 (130) 94 05/26/17 20:14 98.6 68 18 163/77 (105) 95 I/O 05/26/17 05/26/17 05/26/17 05/27/17 05/27/17 05/27/17 07:00 15:00 23:00 07:00 15:00 23:00 Intake Total 500 ml 500 ml 835 ml Output Total 5 ml Balance 495 ml 500 ml 835 ml Intake Oral 800 ml IV Total 500 ml 35 ml Other 500 ml Output Estimated Blood Loss 5 ml # Voids 2 1 1 # Bowel Movements 1 Result Diagram: 05/25/17 1623 05/26/17 0507 Imaging Last Impressions Ankle MRI 05/25/17 0000 Signed Impressions: Service Date/Time: Thursday, May 25, 2017 17:34 - CONCLUSION: 1. There is subcutaneous edema and enhancement along the lateral aspect of the distal leg adjacent to the area of open wound characteristic of a cellulitis. 2. There is subtle edema and enhancement of the superficial fibers of the peroneus longus muscle and there is mild edema and enhancement extending between the peroneal muscles, the soleus and lateral head of gastrocnemius muscle. This edema and enhancement abuts the posterior aspect of the fibula. However, there are no findings to indicate osteomyelitis. 3. No drainable fluid collection or abscess is present. Phil Wiggins MD Tibia/Fibula X-Ray 05/24/17 0000 Signed Impressions: Service Date/Time: Wednesday, May 24, 2017 19:30 - CONCLUSION: 1. No plain radiograph evidence for osteomyelitis as questioned. Kenney Bolanos MD Procedures Status post right ankle debridement and irrigation Other Results Microbiology Date/Time Source Procedure Growth Status 05/26/17 10:05 Fluid Other Fungal Smear - Final NO FUNGAL ELEMENTS SEEN. Resulted 05/26/17 10:05 Fluid Other Fungal Culture Pending Resulted 05/24/17 20:31 Wound Leg Gram Stain - Final Complete 05/24/17 20:31 Wound Culture - Final Staphylococcus Aureus Complete Objective Remarks Lower extremity physical exam: Vascular: Dorsalis pedis 2/4, posterior tibial 2/4. Capillary refill time within normal limits to digits 5 bilateral foot. Edema present right foot and ankle nonpitting Neuro: Gross sensation intact to bilateral lower extremity. Pinpoint sensation decreased. No hyperalgesia noted to bilateral lower extremity Dermatology: Normal temperature and turgor to bilateral lower extremity. Wound VAC to right lateral ankle noted to be functioning at 125 mm per mercury with no leaks detected. Musculoskeletal: No calf tenderness on palpation negative Homans sign. Equal range of motion within normal limits. Medications and IVs Current Medications Medications (Trade) Dose Ordered Sig/Kevin Route Start Time Stop Time Status Last Admin (D50w (Vial) Inj) 50 ml UNSCH PRN IV PUSH 05/24/17 22:00 (Glucagon Inj) 1 mg UNSCH PRN OTHER 05/24/17 22:00 (NovoLOG SUPPLEMENTAL SCALE) 1 ACHS SLIDING SCALE SQ 05/25/17 08:00 05/26/17 21:12 (NS Flush) 2 ml UNSCH PRN IV FLUSH 05/24/17 22:00 (NS Flush) 2 ml BID IV FLUSH 05/25/17 09:00 05/27/17 08:24 (Zofran Inj) 4 mg Q6H PRN IVP 05/24/17 22:00 (Heparin Inj) 5,000 units Q12H SQ 05/25/17 09:00 05/27/17 08:23 (Tylenol) 650 mg Q6H PRN PO 05/24/17 22:00 05/26/17 14:06 (Morphine Inj) 2 mg Q3H PRN IV PUSH 05/24/17 22:00 (Donna-Colace) 1 tab BID PO 05/25/17 09:00 05/27/17 08:23 (Milk Of Magnesia Liq) 30 ml Q12H PRN PO 05/24/17 22:00 (Senokot) 17.2 mg Q12H PRN PO 05/24/17 22:00 (Dulcolax Supp) 10 mg DAILY PRN RECTAL 05/24/17 22:00 (Lactulose Liq) 30 ml DAILY PRN PO 05/24/17 22:00 (Cardizem) 60 mg QID PO 05/25/17 09:00 05/27/17 17:13 (Hydrodiuril) 50 mg DAILY PO 05/25/17 09:00 05/27/17 08:23 (Levemir Inj) 34 units HS SQ 05/24/17 22:00 05/26/17 21:12 (Glucophage) 1,000 mg BIDPC PO 05/25/17 09:00 05/27/17 17:13 (Prinivil) 5 mg BID PO 05/25/17 09:00 05/27/17 08:23 (Synthroid) 150 mcg DAILY@0600 PO 05/25/17 06:00 05/27/17 05:32 (Synthroid) 25 mcg DAILY@0600 PO 05/25/17 06:00 05/27/17 05:32 (Gentamicin 0.1% Cream) 1 applic DAILY TOPICAL 05/25/17 15:45 05/27/17 08:23 Lactated Ringer's 1,000 ml @ 30 mls/hr Q24H PRN IV 05/26/17 03:00 05/29/17 02:59 (Lopressor) 25 mg ORNAMENTAL PLASTERER HELPER PRN PO 05/26/17 03:00 05/29/17 02:59 (Betadine 5% Antisepsis Kit) 1 applic ORNAMENTAL PLASTERER HELPER PRN EACH NARE 05/26/17 03:00 05/29/17 02:59 (Chlorhexidine 2% Cloth) 3 pack ORNAMENTAL PLASTERER HELPER PRN TOPICAL 05/26/17 03:00 05/29/17 02:59 (Motrin) 600 mg Q8H PRN PO 05/27/17 11:30 05/27/17 17:19 Levofloxacin/ Dextrose 150 ml @ 100 mls/hr Q24H IV 05/27/17 13:00 05/27/17 12:37 (Vasotec Inj) 1.25 mg Q6H PRN IV PUSH 05/27/17 16:15 05/27/17 16:11 Assessment and Plan Assessment and Plan 57-year-old female status post right lateral ulcer debridement and irrigation, postop day 1 date of surgery 05/26 Patient evaluated and examined with all questions answered Will take down wound VAC tomorrow and evaluate wound Will await final deep cultures before recommending DC Anticipate patient being discharged on wound VAC OR pathology pending Recommend ID consult for outpatient IV versus oral antibiotics depending on culture and pathology results Maria Dolores Phipps DPM May 27, 2017 19:58
[2017-05-27] MEDS: INSULIN DETEMIR 100 UNITS/ML VIAL SQ SCH (22:31)
[2017-05-28] VITALS (13 sets, daily range): BP systolic 145–217; BP diastolic 69–93; PULSE 59–71; RESP 16–18; TEMP 97.4–98.2; O2SAT 96–99
[2017-05-28] MEDS: IBUPROFEN 600 MG TAB PO PRN ×2 (03:33→20:40)
[2017-05-28] MEDS: LEVOTHYROXINE SODIUM 150 MCG TAB PO SCH (05:22)
[2017-05-28] MEDS: LEVOTHYROXINE SODIUM 25 MCG TAB PO SCH (05:22)
[2017-05-28] MEDS: ENALAPRILAT 1.25 MG/ML VIAL IV PUSH PRN ×2 (05:22→12:37)
[2017-05-28 07:26] LABS: BICARBONATE 28.8 MEQ/L (21.0-32.0); CALCIUM 9.2 MG/DL (8.5-10.1); CREATININE 0.8 MG/DL (0.50-1.00)
[2017-05-28] MEDS: INSULIN ASPART SUPPLEMENTAL SCALE SQ SCH ×4 (08:00→20:41)
[2017-05-28] MEDS ORDERED: POTASSIUM CHLORIDE 20 MEQ CONTROLLED RELEASE TAB PO ONE (08:45)
[2017-05-28] MEDS: SODIUM CHLORIDE 0.9% FLUSH 10 ML FLUSH IV FLUSH SCH ×2 (09:00→20:45)
[2017-05-28] MEDS: LISINOPRIL 5 MG TAB PO SCH ×2 (09:00→20:39)
[2017-05-28] MEDS: HYDROCHLOROTHIAZIDE 50 MG TAB PO SCH (09:01)
[2017-05-28] MEDS: metFORMIN HCL 500 MG TAB PO SCH ×2 (09:01→17:39)
[2017-05-28] MEDS: GENTAMICIN SULFATE 0.1% CREAM 15 GM TOPICAL SCH (09:01)
[2017-05-28] MEDS: DILTIAZEM HCL 60 MG TAB PO SCH ×4 (09:01→20:39)
[2017-05-28] MEDS: DOCUSATE SODIUM 50 MG/SENNA 8.6 MG TAB PO SCH ×2 (09:01→20:39)
[2017-05-28] MEDS: HEPARIN SODIUM - SQ 10,000 UNITS/ML VIAL SQ SCH ×2 (09:01→20:39)
[2017-05-28] MEDS: LEVOFLOXACIN 750 MG PREMIX INJ 150 ML IV SCH (12:37)
--- NOTE | 2017-05-28 13:24 | HHI.PR ---
Subjective Remarks Patient inquiring about when she will be able to go home. Hoping she will not need the wound VAC. Objective Vitals Vital Signs Date Time Temp Pulse Resp B/P (MAP) Pulse Ox O2 Delivery O2 Flow Rate FiO2 05/28/17 13:18 197/91 (126) 05/28/17 11:24 97.7 71 16 217/91 (133) 96 05/28/17 08:38 97.8 70 16 189/91 (123) 98 05/28/17 06:33 64 16 185/89 (121) 98 05/28/17 04:59 97.8 62 16 203/93 (129) 98 05/28/17 02:06 65 05/28/17 01:43 98.0 61 16 145/69 (94) 98 05/27/17 20:20 98.0 61 16 165/81 (109) 98 05/27/17 17:15 157/78 (104) 05/27/17 15:45 95.8 60 16 172/77 (108) 97 05/27/17 15:00 72 I/O 05/27/17 05/27/17 05/27/17 05/28/17 05/28/17 05/28/17 07:00 15:00 23:00 07:00 15:00 23:00 Intake Total 500 ml 835 ml 800 ml Balance 500 ml 835 ml 800 ml Intake Oral 800 ml 800 ml IV Total 500 ml 35 ml # Voids 1 3 Result Diagram: 05/25/17 1623 05/28/17 0540 Objective Remarks GENERAL: This is a well-nourished, well-developed patient, in no apparent distress. CARDIOVASCULAR: Normal rate and regular rhythm without murmurs, gallops, or rubs. RESPIRATORY: Good respiratory efforts. Breath sounds equal and clear to auscultation bilaterally. GASTROINTESTINAL: Abdomen soft, non-tender, non-distended. Normal active bowel sounds MUSCULOSKELETAL: Posterior lateral right leg with an ulceration. Wound VAC in place. Wound appears clean. NEURO: Alert & Oriented x4 to person, place, time, situation. Moves all ext x4 PSYCH: Appropriate mood and affect. Procedures 05/26/17 I&D right ankle ulcer with wound VAC application A/P Problem List: (1) Diabetic foot infection ICD Code: E11.69 - Type 2 diabetes mellitus with other specified complication; L08.9 - Local infection of the skin and subcutaneous tissue, unspecified (2) HTN (hypertension) ICD Code: I10 - Essential (primary) hypertension (3) DM (diabetes mellitus) ICD Code: E11.9 - Type 2 diabetes mellitus without complications Assessment and Plan 57-year-old female admitted with: 1. Ulcerative lesion, right lower extremity: This is been present for 2-3 months. Patient admits she has not been compliant with getting appropriate wound care. X-ray shows no sign of osteomyelitis. Wound culture grew MSSA. Sensitive to Levaquin which the patient has been on. Appreciate podiatry recommendations. S/P I&D. Wound vac to be changed in 1-2 days per podiatry. Case management following. Wound VAC will be delivered today and outpatient wound care to be arranged. - Plan to transition the patient to oral Levaquin on discharge. Expect the patient to continue to improve with appropriate wound care. Discussed the need to be compliant with the patient. She agreed to follow-up as instructed. 2. Hypertension: Continue diltiazem, HCTZ, lisinopril. 3. Diabetes mellitus: Monitor Accu-Cheks and cover with sliding scale insulin. Continue Levemir, metformin. 4. DVT prophylaxis: Heparin. Chase Tsang MD May 28, 2017 13:24
[2017-05-28] MEDS: INSULIN DETEMIR 100 UNITS/ML VIAL SQ SCH (20:42)
--- NOTE | 2017-05-28 21:17 | HHI.PR ---
Subjective Remarks Patient seen bedside. Denies any nausea, vomiting, fevers, or chills. Denies any pain to right lower extremity. Denies any calf pain. Per patient the sharp pain pains to right lateral ankle are secondary to wound VAC. Objective Vital Signs Date Time Temp Pulse Resp B/P (MAP) Pulse Ox O2 Delivery O2 Flow Rate FiO2 05/28/17 20:33 97.4 65 18 192/84 (120) 99 05/28/17 17:49 98.2 65 18 199/88 (125) 98 05/28/17 16:16 182/86 (118) 05/28/17 15:00 64 05/28/17 14:19 97.7 59 16 198/93 (128) 99 05/28/17 13:18 197/91 (126) 05/28/17 11:24 97.7 71 16 217/91 (133) 96 05/28/17 08:38 97.8 70 16 189/91 (123) 98 05/28/17 08:00 63 05/28/17 06:33 64 16 185/89 (121) 98 05/28/17 04:59 97.8 62 16 203/93 (129) 98 05/28/17 02:06 65 05/28/17 01:43 98.0 61 16 145/69 (94) 98 I/O 05/27/17 05/27/17 05/27/17 05/28/17 05/28/17 05/28/17 07:00 15:00 23:00 07:00 15:00 23:00 Intake Total 500 ml 835 ml 800 ml 150 ml 1000 ml Output Total 900 ml Balance 500 ml 835 ml 800 ml 150 ml 100 ml Intake Oral 800 ml 800 ml 750 ml IV Total 500 ml 35 ml 150 ml 250 ml Output Urine Total 900 ml # Voids 1 3 Result Diagram: 05/25/17 1623 05/28/17 0540 Imaging Last Impressions Ankle MRI 05/25/17 0000 Signed Impressions: Service Date/Time: Thursday, May 25, 2017 17:34 - CONCLUSION: 1. There is subcutaneous edema and enhancement along the lateral aspect of the distal leg adjacent to the area of open wound characteristic of a cellulitis. 2. There is subtle edema and enhancement of the superficial fibers of the peroneus longus muscle and there is mild edema and enhancement extending between the peroneal muscles, the soleus and lateral head of gastrocnemius muscle. This edema and enhancement abuts the posterior aspect of the fibula. However, there are no findings to indicate osteomyelitis. 3. No drainable fluid collection or abscess is present. Phil Wiggins MD Tibia/Fibula X-Ray 05/24/17 0000 Signed Impressions: Service Date/Time: Wednesday, May 24, 2017 19:30 - CONCLUSION: 1. No plain radiograph evidence for osteomyelitis as questioned. Kenney Bolanos MD Procedures Status post right ankle debridement and irrigation/vision and drainage with wound VAC placement Other Results Microbiology Date/Time Source Procedure Growth Status 05/26/17 10:05 Fluid Other Fungal Smear - Final NO FUNGAL ELEMENTS SEEN. Resulted 05/26/17 10:05 Fluid Other Fungal Culture Pending Resulted 05/24/17 20:31 Wound Leg Gram Stain - Final Complete 05/24/17 20:31 Wound Culture - Final Staphylococcus Aureus Complete Objective Remarks Lower extremity physical exam: Vascular: Dorsalis pedis 2/4, posterior tibial 2/4. Capillary refill time within normal limits to digits 5 bilateral foot. Edema present right foot and ankle nonpitting Neuro: Gross sensation intact to bilateral lower extremity. Pinpoint sensation decreased. No hyperalgesia noted to bilateral lower extremity Dermatology: Normal temperature and turgor to bilateral lower extremity. Wound noted to right lateral ankle proximal to lateral malleolus measuring approximately 5 cm x 6 cm x 0.3 depth with fibro-granular base epithelialization noted to wound edges and healthy granular tissue noted. No purulent drainage noted. No periwound erythema noted. Musculoskeletal: No calf tenderness on palpation negative Homans sign. Ankle range of motion within normal limits. Medications and IVs Current Medications Medications (Trade) Dose Ordered Sig/Kevin Route Start Time Stop Time Status Last Admin (D50w (Vial) Inj) 50 ml UNSCH PRN IV PUSH 05/24/17 22:00 (Glucagon Inj) 1 mg UNSCH PRN OTHER 05/24/17 22:00 (NovoLOG SUPPLEMENTAL SCALE) 1 ACHS SLIDING SCALE SQ 05/25/17 08:00 05/26/17 21:12 (NS Flush) 2 ml UNSCH PRN IV FLUSH 05/24/17 22:00 (NS Flush) 2 ml BID IV FLUSH 05/25/17 09:00 05/28/17 20:45 (Zofran Inj) 4 mg Q6H PRN IVP 05/24/17 22:00 (Heparin Inj) 5,000 units Q12H SQ 05/25/17 09:00 05/28/17 20:39 (Tylenol) 650 mg Q6H PRN PO 05/24/17 22:00 05/26/17 14:06 (Morphine Inj) 2 mg Q3H PRN IV PUSH 05/24/17 22:00 (Donna-Colace) 1 tab BID PO 05/25/17 09:00 05/28/17 20:39 (Milk Of Magnesia Liq) 30 ml Q12H PRN PO 05/24/17 22:00 (Senokot) 17.2 mg Q12H PRN PO 05/24/17 22:00 (Dulcolax Supp) 10 mg DAILY PRN RECTAL 05/24/17 22:00 (Lactulose Liq) 30 ml DAILY PRN PO 05/24/17 22:00 (Cardizem) 60 mg QID PO 05/25/17 09:00 05/28/17 20:39 (Hydrodiuril) 50 mg DAILY PO 05/25/17 09:00 05/28/17 09:01 (Levemir Inj) 34 units HS SQ 05/24/17 22:00 05/28/17 20:42 (Glucophage) 1,000 mg BIDPC PO 05/25/17 09:00 05/28/17 17:39 (Synthroid) 150 mcg DAILY@0600 PO 05/25/17 06:00 05/28/17 05:22 (Synthroid) 25 mcg DAILY@0600 PO 05/25/17 06:00 05/28/17 05:22 (Gentamicin 0.1% Cream) 1 applic DAILY TOPICAL 05/25/17 15:45 05/28/17 09:01 Lactated Ringer's 1,000 ml @ 30 mls/hr Q24H PRN IV 05/26/17 03:00 05/29/17 02:59 (Lopressor) 25 mg GAS METER MECHANIC PRN PO 05/26/17 03:00 05/29/17 02:59 (Betadine 5% Antisepsis Kit) 1 applic GAS METER MECHANIC PRN EACH NARE 05/26/17 03:00 05/29/17 02:59 (Chlorhexidine 2% Cloth) 3 pack GAS METER MECHANIC PRN TOPICAL 05/26/17 03:00 05/29/17 02:59 (Motrin) 600 mg Q8H PRN PO 05/27/17 11:30 05/28/17 20:40 Levofloxacin/ Dextrose 150 ml @ 100 mls/hr Q24H IV 05/27/17 13:00 05/28/17 12:37 (Vasotec Inj) 1.25 mg Q6H PRN IV PUSH 05/27/17 16:15 05/28/17 12:37 (Prinivil) 10 mg BID PO 05/28/17 09:00 05/28/17 20:39 Assessment and Plan Assessment and Plan 57-year-old female status post right lateral ulcer debridement and irrigation, postop day 1 date of surgery 05/26 Patient evaluated and examined with all questions answered Wound evaluated with nurse bedside Okay to DC per podiatry with appropriate antibiotic recommendations by infectious disease Patient to go home with wound VAC will need home health care Patient to follow-up with Dr. Oates within 1 week of discharge Podiatry discharge orders entered Maria Dolores Phipps DPM May 28, 2017 21:17
[2017-05-28] MEDS: ACETAMINOPHEN/CODEINE 300 MG/30 MG TAB PO PRN (22:15)
[2017-05-29] VITALS (12 sets, daily range): BP systolic 159–245; BP diastolic 64–108; PULSE 54–89; RESP 18–20; TEMP 97–98.6; O2SAT 95–99
[2017-05-29] MEDS: LEVOTHYROXINE SODIUM 25 MCG TAB PO SCH (06:11)
[2017-05-29] MEDS: LEVOTHYROXINE SODIUM 150 MCG TAB PO SCH (06:11)
[2017-05-29] MEDS: INSULIN ASPART SUPPLEMENTAL SCALE SQ SCH ×4 (07:44→20:46)
[2017-05-29] MEDS: HYDROCHLOROTHIAZIDE 50 MG TAB PO SCH (08:21)
[2017-05-29] MEDS: metFORMIN HCL 500 MG TAB PO SCH ×2 (08:22→17:26)
[2017-05-29] MEDS: DILTIAZEM HCL 60 MG TAB PO SCH (08:22)
[2017-05-29] MEDS: DOCUSATE SODIUM 50 MG/SENNA 8.6 MG TAB PO SCH ×2 (08:22→20:45)
[2017-05-29] MEDS: LISINOPRIL 5 MG TAB PO SCH (08:23)
[2017-05-29] MEDS: HEPARIN SODIUM - SQ 10,000 UNITS/ML VIAL SQ SCH ×2 (08:25→20:45)
[2017-05-29] MEDS: SODIUM CHLORIDE 0.9% FLUSH 10 ML FLUSH IV FLUSH SCH ×2 (08:26→20:45)
[2017-05-29] MEDS: GENTAMICIN SULFATE 0.1% CREAM 15 GM TOPICAL SCH (08:26)
--- NOTE | 2017-05-29 09:09 | RADRPT ---
EXAM DATE/TIME: 05/29/2017 08:46 [facility] COMPARISON: No previous studies available for comparison. INDICATIONS : Chest pressure since last night. MEDICAL HISTORY : Hypertension. Diabetes mellitus type 2. SURGICAL HISTORY : None. ENCOUNTER: Initial ACUITY: 2 days PAIN SCORE: 2/10 LOCATION: Bilateral chest FINDINGS: Portable AP view of the chest demonstrates a normal-sized cardiac silhouette. No effusion, consolidat ion, or pneumothorax is visualized. The bones and soft tissues demonstrate no acute abnormality. CONCLUSION: No acute cardiopulmonary abnormality is identified. Phil Wiggins MD on May 29, 2017 at 9:07 Board Certified Radiologist. This report was verified electronically.
--- NOTE | 2017-05-29 11:25 | HHI.PR ---
Subjective Remarks The patient was sitting on a chair. She was hopeful to go home later today. She noted chest pressure that she has experienced before. She was wondering if it was related to her diltiazem. She had no other acute complaints. Objective Vitals Vital Signs Date Time Temp Pulse Resp B/P (MAP) Pulse Ox O2 Delivery O2 Flow Rate FiO2 05/29/17 10:21 54 05/29/17 07:57 98.6 65 20 180/79 (112) 96 05/29/17 05:01 97.3 64 18 163/64 (97) 95 05/29/17 00:14 98.2 54 18 159/72 (101) 96 05/28/17 20:33 97.4 65 18 192/84 (120) 99 05/28/17 17:49 98.2 65 18 199/88 (125) 98 05/28/17 16:16 182/86 (118) 05/28/17 15:00 64 05/28/17 14:19 97.7 59 16 198/93 (128) 99 05/28/17 13:18 197/91 (126) 05/28/17 11:24 97.7 71 16 217/91 (133) 96 I/O 05/28/17 05/28/17 05/28/17 05/29/17 05/29/17 05/29/17 07:00 15:00 23:00 07:00 15:00 23:00 Intake Total 800 ml 150 ml 1000 ml Output Total 900 ml Balance 800 ml 150 ml 100 ml Intake Oral 800 ml 750 ml IV Total 150 ml 250 ml Output Urine Total 900 ml # Voids 3 Result Diagram: 05/25/17 1623 05/28/17 0540 Imaging Last Impressions Chest X-Ray 05/29/17 0000 Signed Impressions: Service Date/Time: Monday, May 29, 2017 08:46 - CONCLUSION: No acute cardiopulmonary abnormality is identified. Phil Wiggins MD Ankle MRI 05/25/17 0000 Signed Impressions: Service Date/Time: Thursday, May 25, 2017 17:34 - CONCLUSION: 1. There is subcutaneous edema and enhancement along the lateral aspect of the distal leg adjacent to the area of open wound characteristic of a cellulitis. 2. There is subtle edema and enhancement of the superficial fibers of the peroneus longus muscle and there is mild edema and enhancement extending between the peroneal muscles, the soleus and lateral head of gastrocnemius muscle. This edema and enhancement abuts the posterior aspect of the fibula. However, there are no findings to indicate osteomyelitis. 3. No drainable fluid collection or abscess is present. Phil Wiggins MD Tibia/Fibula X-Ray 05/24/17 0000 Signed Impressions: Service Date/Time: Wednesday, May 24, 2017 19:30 - CONCLUSION: 1. No plain radiograph evidence for osteomyelitis as questioned. Kenney Bolanos MD Objective Remarks GENERAL: This is a well-nourished, well-developed patient, in no apparent distress. CARDIOVASCULAR: Normal rate and regular rhythm without murmurs, gallops, or rubs. RESPIRATORY: Good respiratory efforts. Breath sounds equal and clear to auscultation bilaterally. GASTROINTESTINAL: Abdomen soft, non-tender, non-distended. Normal active bowel sounds. MUSCULOSKELETAL: Posterior lateral right leg with an ulceration. Wound VAC in place. NEURO: Alert & Oriented x4 to person, place, time, situation. Moves all ext x4 PSYCH: Appropriate mood and affect. Procedures 05/26/17 I&D right ankle ulcer with wound VAC application Medications and IVs Current Medications Medications (Trade) Dose Ordered Sig/Kevin Route Start Time Stop Time Status Last Admin (D50w (Vial) Inj) 50 ml UNSCH PRN IV PUSH 05/24/17 22:00 (Glucagon Inj) 1 mg UNSCH PRN OTHER 05/24/17 22:00 (NovoLOG SUPPLEMENTAL SCALE) 1 ACHS SLIDING SCALE SQ 05/25/17 08:00 05/26/17 21:12 (NS Flush) 2 ml UNSCH PRN IV FLUSH 05/24/17 22:00 (NS Flush) 2 ml BID IV FLUSH 05/25/17 09:00 05/29/17 08:26 (Zofran Inj) 4 mg Q6H PRN IVP 05/24/17 22:00 (Heparin Inj) 5,000 units Q12H SQ 05/25/17 09:00 05/29/17 08:25 (Tylenol) 650 mg Q6H PRN PO 05/24/17 22:00 05/26/17 14:06 (Morphine Inj) 2 mg Q3H PRN IV PUSH 05/24/17 22:00 (Donna-Colace) 1 tab BID PO 05/25/17 09:00 05/29/17 08:22 (Milk Of Magnesia Liq) 30 ml Q12H PRN PO 05/24/17 22:00 (Senokot) 17.2 mg Q12H PRN PO 05/24/17 22:00 (Dulcolax Supp) 10 mg DAILY PRN RECTAL 05/24/17 22:00 (Lactulose Liq) 30 ml DAILY PRN PO 05/24/17 22:00 (Cardizem) 60 mg QID PO 05/25/17 09:00 05/29/17 08:22 (Hydrodiuril) 50 mg DAILY PO 05/25/17 09:00 05/29/17 08:21 (Levemir Inj) 34 units HS SQ 05/24/17 22:00 05/28/17 20:42 (Glucophage) 1,000 mg BIDPC PO 05/25/17 09:00 05/29/17 08:22 (Synthroid) 150 mcg DAILY@0600 PO 05/25/17 06:00 05/29/17 06:11 (Synthroid) 25 mcg DAILY@0600 PO 05/25/17 06:00 05/29/17 06:11 (Gentamicin 0.1% Cream) 1 applic DAILY TOPICAL 05/25/17 15:45 05/29/17 08:26 (Motrin) 600 mg Q8H PRN PO 05/27/17 11:30 05/28/17 20:40 Levofloxacin/ Dextrose 150 ml @ 100 mls/hr Q24H IV 05/27/17 13:00 05/28/17 12:37 (Vasotec Inj) 1.25 mg Q6H PRN IV PUSH 05/27/17 16:15 05/28/17 12:37 (Prinivil) 10 mg BID PO 05/28/17 09:00 05/29/17 08:23 (Tylenol-Codeine #3) 1 tab Q6H PRN PO 05/28/17 21:45 05/28/17 22:15 A/P Problem List: (1) Diabetic foot infection ICD Code: E11.69 - Type 2 diabetes mellitus with other specified complication; L08.9 - Local infection of the skin and subcutaneous tissue, unspecified (2) HTN (hypertension) ICD Code: I10 - Essential (primary) hypertension (3) DM (diabetes mellitus) ICD Code: E11.9 - Type 2 diabetes mellitus without complications Assessment and Plan Ulcerative lesion Right lower extremity. This has been present for 2-3 months. Patient admits she has not been compliant with getting appropriate wound care. X-ray shows no sign of osteomyelitis. Wound culture grew MSSA. Sensitive to Levaquin which the patient has been on. Appreciate podiatry recommendations. S/P I&D. - Wound vac to be changed per podiatry. - Case management following. - ID consult requested by podiatry. Chest pressure Slight, chronic. EKG consistent with early repolarization. CXR unremarkable. - trend trops and EKGs. - telemetry. Hypertension Blood pressure poorly controlled. - Continue diltiazem, HCTZ, lisinopril. Diabetes mellitus Glucose well controlled. - Monitor Accu-Cheks and cover with sliding scale insulin. - Continue Levemir, metformin. Hypokalemia Likely related to HCTZ. - monitor and replete. DVT prophylaxis: Heparin Discharge Planning Awaiting ID Anthony Sanchez DO May 29, 2017 11:25
--- NOTE | 2017-05-29 11:46 | HHI.FF ---
Face to Face Verification Diagnosis: (1) Diabetic foot infection (2) Uncontrolled hypertension (3) Diabetic leg ulcer Home Health Nursing Order: Medical education Signs/symptoms of disease process Diabetic education Medication education-adverse effect Wound care and dressing changes Nursing assessment with vital signs Instructions: Wound vac dressing changes three times per week I have seen patient Victoria Thomas on 05/29/17. My clinical findings support the need for the requested home health care services because: Ltd mobility - disease progression Deconditioned w/ increased weakness Limited ability to care for self Infection w/ risk of complications I certify that my clinical findings support that this patient is homebound because: Post-op weakness Unsteady gait/balance Unsafe to leave home unassisted Anthony Ramirez DO May 29, 2017 11:46
[2017-05-29] MEDS: ENALAPRILAT 1.25 MG/ML VIAL IV PUSH PRN (12:07)
[2017-05-29] MEDS: LEVOFLOXACIN 750 MG PREMIX INJ 150 ML IV SCH (12:10)
[2017-05-29 14:46] LABS: BICARBONATE 29.4 MEQ/L (21.0-32.0); BLOOD UREA NITROGEN 15 MG/DL (7-18); CALCIUM 9.5 MG/DL (8.5-10.1); CHLORIDE 102 MEQ/L (98-107); CREATININE 0.87 MG/DL (0.50-1.00); GLOMERULAR FILTRATION RATE 81 ML/MIN (>89); GLUCOSE,RANDOM 102 MG/DL (74-106); SODIUM (NA) 138 MEQ/L (136-145)
[2017-05-29 14:50] LABS: TROPONIN I LESS THAN 0.02 NG/ML (0.02-0.05)
[2017-05-29] MEDS: DILTIAZEM HCL 30 MG TAB PO SCH ×2 (14:50→20:43)
[2017-05-29] MEDS ORDERED: LISINOPRIL 10 MG TAB PO ONE (15:30)
[2017-05-29] MEDS ORDERED: POTASSIUM CHLORIDE 25 MEQ EFFERVESCENT TAB PO ONE (15:30)
[2017-05-29] MEDS: IBUPROFEN 600 MG TAB PO PRN ×2 (15:39→23:51)
--- NOTE | 2017-05-29 18:54 | PD.ID.CON ---
History of Present Illness Service ID Consult Requested By Dr Ramirez Reason for Consult R ankle MSSA infx Primary Care Physician No Primary Care Physician Diagnoses: History of Present Illness 57 yo diabetic female developped R ankle injury following minor trauma Ankle MRI showed subcutaneous edema and enhancement along the lateral aspect of the distal leg adjacent to the area of open wound characteristic of a cellulitis, subtle edema and enhancement of the superficial fibers of the peroneus longus muscle and there is mild edema and enhancement extending between the peroneal muscles, the soleus and lateral head of gastrocnemius muscle. This edema and enhancement abuts the posterior aspect of the fibula without findings to indicate osteomyelitis and no fluid collection or abscess Sp Right ankle incision drainage excisional debridement ulcer with application of wound VAC by Dr Oates on 05/26 No osteo on op report Clx positive for MSSA Review of Systems Except as stated in HPI: all other systems reviewed are Neg Past Family Social History Allergies: Coded Allergies: amlodipine (Verified Allergy, Unknown, 05/24/17) Past Medical History HTN and DM Past Surgical History None Active Ordered Medications Medications where reviewed in EMR Antibiotics Include: levaquine Family History No h/o DM or CAD Social History Negative for alcohol, tobacco or drugs Physical Exam Vital Signs Vital Signs Date Time Temp Pulse Resp B/P (MAP) Pulse Ox O2 Delivery O2 Flow Rate FiO2 05/29/17 16:14 60 05/29/17 16:08 179/81 (113) 05/29/17 15:57 97.5 82 20 245/108 (153) 96 05/29/17 14:48 89 05/29/17 12:58 57 05/29/17 11:36 98.3 61 20 188/80 (116) 97 05/29/17 10:21 54 05/29/17 07:57 98.6 65 20 180/79 (112) 96 05/29/17 05:01 97.3 64 18 163/64 (97) 95 05/29/17 00:14 98.2 54 18 159/72 (101) 96 05/28/17 20:33 97.4 65 18 192/84 (120) 99 Physical Exam CONSTITUTIONAL/GENERAL: This is a morbidly obese female patient, in no apparent distress. TUBES/LINES/DRAINS: SKIN: No jaundice, rashes, or lesions. Skin temperature appropriate. Not diaphoretic. HEAD: Atraumatic. Normocephalic. EYES: Pupils equal and round and reactive. Extraocular motions intact. No scleral icterus. No injection or drainage. Fundi not examined. ENT: Hearing grossly normal. Nose without bleeding or purulent drainage. Throat without visible erythema, exudates, masses, or lesions. NECK: Trachea midline. Supple, nontender. No palpable thyroid enlargement or nodularity. CARDIOVASCULAR: Regular rate and rhythm without murmurs, gallops, or rubs. No JVD. Peripheral pulses symmetric. RESPIRATORY/CHEST: Symmetric, unlabored respirations. Clear to auscultation. Breath sounds equal bilaterally. No wheezes, rales, or rhonchi. GASTROINTESTINAL: Abdomen soft, non-tender, nondistended. No hepato-splenomegaly , or palpable masses. No guarding. Bowel sounds present. GENITOURINARY: Without palpable bladder distension. MUSCULOSKELETAL: Extremities without clubbing, cyanosis, or edema. No joint tenderness or effusion noted. No calf tenderness. R ankle with wound over lateral aspect with VAC in place, serosang drainage Very mild edema, erythema aournd LYMPHATICS: No palpable cervical or supraclavicular adenopathy No inguinal lymphadenopathy. NEUROLOGICAL: Awake and alert. Motor and sensory grossly within normal limits. Follows commands. Clear speech. Moves all extremities. PSYCHIATRIC: No obvious anxiety/depression. no apparent hallucinations or other psychotic thought process. Laboratory Laboratory Tests Test 05/29/17 10:07 05/29/17 13:29 Troponin I LESS THAN 0.02 LESS THAN 0.02 Blood Urea Nitrogen 15 Creatinine 0.87 Random Glucose 102 Calcium Level 9.5 Sodium Level 138 Potassium Level 3.2 Chloride Level 102 Carbon Dioxide Level 29.4 Anion Gap 7 Estimat Glomerular Filtration Rate 81 Date/Time Source Procedure Growth Status 05/26/17 10:05 Fluid Other Fungal Smear - Final NO FUNGAL ELEMENTS SEEN. Resulted 05/26/17 10:05 Fluid Other Fungal Culture Pending Resulted 05/24/17 20:31 Wound Leg Gram Stain - Final Complete 05/24/17 20:31 Wound Culture - Final Staphylococcus Aureus Complete Result Diagram: 05/25/17 1623 05/29/17 1329 Imaging Last Impressions Chest X-Ray 05/29/17 0000 Signed Impressions: Service Date/Time: Monday, May 29, 2017 08:46 - CONCLUSION: No acute cardiopulmonary abnormality is identified. Phil Wiggins MD Ankle MRI 05/25/17 0000 Signed Impressions: Service Date/Time: Thursday, May 25, 2017 17:34 - CONCLUSION: 1. There is subcutaneous edema and enhancement along the lateral aspect of the distal leg adjacent to the area of open wound characteristic of a cellulitis. 2. There is subtle edema and enhancement of the superficial fibers of the peroneus longus muscle and there is mild edema and enhancement extending between the peroneal muscles, the soleus and lateral head of gastrocnemius muscle. This edema and enhancement abuts the posterior aspect of the fibula. However, there are no findings to indicate osteomyelitis. 3. No drainable fluid collection or abscess is present. Phil Wiggins MD Tibia/Fibula X-Ray 05/24/17 0000 Signed Impressions: Service Date/Time: Wednesday, May 24, 2017 19:30 - CONCLUSION: 1. No plain radiograph evidence for osteomyelitis as questioned. Kenney Bolanos MD Assessment and Plan Assessment and Plan MSSA infection R ankle - infection of moderate severe ty requiring debridement DM - dc levaquine - will cont IV tx x 2 weeks, might need additional po abx if needed (keflex 500 mg po qid) after IV treatmetn completed (total 2-4 weeks) Adali Barba MD May 29, 2017 18:54
--- NOTE | 2017-05-29 18:59 | HHI.FF ---
Infusion Therapy Location of Infusion Therapy: Home Health Care IV Infusion Order Patient Information Patient Weight 121.2 kg Diagnosis: Coded Allergies: amlodipine (Verified Allergy, Unknown, 05/24/17) Administer Medication Ceftriaxone 2 grams IV q 24 hours Start Treatment: May 29, 2017 Stop Treatment: Jun 11, 2017 Additional Information Venous access: PICC Line Additional Instructions [x] Peripheral flush and dressing changes per protocol [x] Implanted port and central electrical lineman: * Implanted port: 10 ml Normal Saline followed by 5 ml Heparin 100 units/ml Heparin flush after each use and monthly to maintain. [] May leave port accessed during therapy. [] May leave peripheral site accessed for duration of therapy. [x] If patient has SOB or respiratory distress, check oxygen saturation. If less than 90% or clinical signs of respiratory distress, administer oxygen at 2 L/min. via nasal cannula and notify physician. [x] Anaphylaxis/Reaction orders: * Stop infusion. * Keep IV line open with saline flush. * Notify physician. * Monitor vital signs every 15 minutes until symptoms resolve. * Check Oxygen saturation; Oxygen at 2 L/min. via nasal cannula if less than 90% or clinical signs of respiratory distress. * Administer diphenhydramine (Benadryl) 25 mg IV STAT, (unless patient has received as pre-med). May repeat once, if necessary. * Solu-Cortef 250 mg IVP over 30-60 seconds, use 100 mg vials for each dissolution. * Epinephrine (1mg/1 ml) 0.3 mg subcutaneously or IVP now with any signs of respiratory distress. * Check with physician for new additional pre-med orders if patient is re- challenged or re-treated. [x] May remove PICC line when treatment complete, after confirming with Physician. [x] If the patient is admitted to the hospital, the ED, or transferred via [facility] , complete transfer form including medication reconciliation order sheet. Laboratory Tests Weekly Labs: CBC w/diff, Creatinine, LFT's (Hepatic function test) Adali Barba MD May 29, 2017 18:59
[2017-05-29] MEDS: LISINOPRIL 20 MG TAB PO SCH (20:45)
[2017-05-29] MEDS: INSULIN DETEMIR 100 UNITS/ML VIAL SQ SCH (20:46)
[2017-05-29] MEDS: ACETAMINOPHEN/CODEINE 300 MG/30 MG TAB PO PRN (20:55)
[2017-05-30] VITALS (8 sets, daily range): BP systolic 125–191; BP diastolic 60–82; PULSE 55–81; RESP 16–20; TEMP 97.2–98.3; O2SAT 90–98
[2017-05-30] MEDS: LEVOTHYROXINE SODIUM 150 MCG TAB PO SCH (05:15)
[2017-05-30] MEDS: LEVOTHYROXINE SODIUM 25 MCG TAB PO SCH (05:15)
[2017-05-30 07:19] LABS: HEMATOCRIT 35.2 % (35.0-46.0); HEMOGLOBIN 12.1 GM/DL (11.6-15.3); MEAN CELL VOLUME 84.6 FL (80.0-100.0); MEAN CORPUSCULAR HEMOGLOBIN 29.1 PG (27.0-34.0); MEAN CORPUSCULAR HGB CONC 34.4 % (32.0-36.0); MEAN PLATELET VOLUME 7.4 FL (7.0-11.0); PLATELET COUNT 378 TH/MM3 (150-450); RED BLOOD COUNT 4.16 MIL/MM3 (4.00-5.30); RED CELL DISTRIBUTION WIDTH 14.9 % (11.6-17.2); WHITE BLOOD COUNT 6.1 TH/MM3 (4.0-11.0)
[2017-05-30 07:31] LABS: BICARBONATE 27.6 MEQ/L (21.0-32.0); CALCIUM 9.6 MG/DL (8.5-10.1); CREATININE 0.83 MG/DL (0.50-1.00); MAGNESIUM 1.9 MG/DL (1.5-2.5)
[2017-05-30] MEDS: INSULIN ASPART SUPPLEMENTAL SCALE SQ SCH ×4 (08:08→20:44)
[2017-05-30] MEDS: DOCUSATE SODIUM 50 MG/SENNA 8.6 MG TAB PO SCH ×3 (08:48→22:43)
[2017-05-30] MEDS: DILTIAZEM-CD 180 MG CAP ER PO SCH (08:48)
[2017-05-30] MEDS: LISINOPRIL 20 MG TAB PO SCH ×2 (08:48→20:42)
[2017-05-30] MEDS: SODIUM CHLORIDE 0.9% FLUSH 10 ML FLUSH IV FLUSH SCH ×2 (08:49→20:44)
[2017-05-30] MEDS: HEPARIN SODIUM - SQ 10,000 UNITS/ML VIAL SQ SCH ×2 (08:49→20:43)
[2017-05-30] MEDS: metFORMIN HCL 500 MG TAB PO SCH ×2 (08:49→17:31)
[2017-05-30] MEDS: HYDROCHLOROTHIAZIDE 50 MG TAB PO SCH (08:49)
[2017-05-30] MEDS: IBUPROFEN 600 MG TAB PO PRN ×2 (09:00→20:39)
[2017-05-30] MEDS: GENTAMICIN SULFATE 0.1% CREAM 15 GM TOPICAL SCH (09:00)
--- NOTE | 2017-05-30 11:37 | EKG ---
Date Performed: 05/29/2017 Time Performed: 13:15:16 PTAGE: 57 years EKG: SINUS BRADYCARDIA ST ELEVATION, PROBABLY EARLY REPOLARIZATION MODERATE T-WAVE ABNORMALITY, CONSIDER LATERAL ISCHEMIA ABNORMAL ECG Since the prior tracing, there has been no significant change PREVIOUS TRACING : 05/29/2017 08.37 DOCTOR: Brooklyn Sesay Interpretating Date/Time 05/30/2017 11:34:49
--- NOTE | 2017-05-30 11:37 | HHI.FF ---
Face to Face Verification Diagnosis: (1) Diabetic foot infection (2) DM (diabetes mellitus) (3) HTN (hypertension) (4) Uncontrolled hypertension (5) Diabetic leg ulcer Home Health Nursing Order: Medical education Signs/symptoms of disease process Diabetic education Medication education-adverse effect Wound care and dressing changes Nursing assessment with vital signs Instructions: Please change wound vac dressings every 48 hours I have seen patient Victoria Thomas on 05/30/17. My clinical findings support the need for the requested home health care services because: Ltd mobility - disease progression Deconditioned w/ increased weakness Limited ability to care for self High risk of falls Infection w/ risk of complications I certify that my clinical findings support that this patient is homebound because: Unsteady gait/balance Unsafe to leave home unassisted Anthony Ramirez DO May 30, 2017 11:37
--- NOTE | 2017-05-30 11:37 | EKG ---
Date Performed: 05/29/2017 Time Performed: 08:37:11 PTAGE: 57 years EKG: SINUS BRADYCARDIA ST ELEVATION, PROBABLY EARLY REPOLARIZATION MODERATE T-WAVE ABNORMALITY, CONSIDER LATERAL ISCHEMIA ABNORMAL ECG Since the prior tracing, there has been no significant change PREVIOUS TRACING : 05/26/2017 05.49 DOCTOR: Brooklyn Sesay Interpretating Date/Time 05/30/2017 11:34:24
[2017-05-30] MEDS ORDERED: CEPH-460 PO (11:40)
[2017-05-30] MEDS ORDERED: LISI-515 PO (11:40)
--- NOTE | 2017-05-30 11:40 | HHI.DCPOC ---
Discharge Care Plan Diagnosis: (1) Diabetic foot infection (2) DM (diabetes mellitus) (3) HTN (hypertension) (4) Uncontrolled hypertension (5) Diabetic leg ulcer Goals to Promote Your Health * To prevent worsening of your condition and complications * To maintain your health at the optimal level Directions to Meet Your Goals Take your medications as prescribed Follow your dietary instruction Follow activity as directed Keep your appointments as scheduled Take your immunizations and boosters as scheduled If your symptoms worsen call your PCP, if no PCP go to Urgent Care Center or Emergency Room Smoking is Dangerous to Your Health. Avoid second hand smoke Call the 24-hour hour crisis hotline for domestic abuse at Anthony Ramirez DO May 30, 2017 11:40
--- NOTE | 2017-05-30 11:53 | HHI.DS ---
Discharge Summary Admission Date May 26, 2017 at 12:53 Discharge Date: May 31, 2017 Admitting Diagnosis (1) Diabetic foot infection ICD Code: E11.69 - Type 2 diabetes mellitus with other specified complication; L08.9 - Local infection of the skin and subcutaneous tissue, unspecified Diagnosis: Principal (2) HTN (hypertension) ICD Code: I10 - Essential (primary) hypertension Diagnosis: Principal (3) DM (diabetes mellitus) ICD Code: E11.9 - Type 2 diabetes mellitus without complications Diagnosis: Principal Procedures 05/26/17 I&D right ankle ulcer with wound VAC application Brief History - From Admission This is a 57-year-old female with a PMH of HTN and DM who presented to the ER with complaints of right leg wound x2-3 months. States symptoms have been intermittent over the last several months, has not sought medical attention until now. Denies fever or chills. States she was seen at Urgent Care today and referred to the ER. Reports associated leg pain, sharp, intermittent, 6/10 , non-radiating, worse w/ movement/touch. On arrival, BP 240/105, HR 59, O2 sat 98% on RA, Afebrile. CBC unremarkable. Chemistry essentially unremarkable. CRP 0.82. I 1.0. Tib-fib X-ray with no evidence of osteoarthritis. S/p Vanc in ER. CBC/BMP: 05/30/17 0630 05/30/17 0630 Significant Findings Laboratory Tests Test 05/28/17 05:40 05/29/17 10:07 05/29/17 13:29 05/30/17 06:30 Potassium Level 3.2 MEQ/L (3.5-5.1) 3.2 MEQ/L (3.5-5.1) Troponin I LESS THAN 0.02 NG/ML LESS THAN 0.02 NG/ML Estimat Glomerular Filtration Rate 81 ML/MIN (>89) 86 ML/MIN (>89) Imaging Last Impressions Chest X-Ray 05/29/17 0000 Signed Impressions: Service Date/Time: Monday, May 29, 2017 08:46 - CONCLUSION: No acute cardiopulmonary abnormality is identified. Phil Wiggins MD Ankle MRI 05/25/17 0000 Signed Impressions: Service Date/Time: Thursday, May 25, 2017 17:34 - CONCLUSION: 1. There is subcutaneous edema and enhancement along the lateral aspect of the distal leg adjacent to the area of open wound characteristic of a cellulitis. 2. There is subtle edema and enhancement of the superficial fibers of the peroneus longus muscle and there is mild edema and enhancement extending between the peroneal muscles, the soleus and lateral head of gastrocnemius muscle. This edema and enhancement abuts the posterior aspect of the fibula. However, there are no findings to indicate osteomyelitis. 3. No drainable fluid collection or abscess is present. Phil Wiggins MD Tibia/Fibula X-Ray 05/24/17 0000 Signed Impressions: Service Date/Time: Wednesday, May 24, 2017 19:30 - CONCLUSION: 1. No plain radiograph evidence for osteomyelitis as questioned. Kenney Bolanos MD PE at Discharge GENERAL: This is a well-nourished, well-developed patient, in no apparent distress. CARDIOVASCULAR: Normal rate and regular rhythm without murmurs, gallops, or rubs. RESPIRATORY: Good respiratory efforts. Breath sounds equal and clear to auscultation bilaterally. GASTROINTESTINAL: Abdomen soft, non-tender, non-distended. Normal active bowel sounds. MUSCULOSKELETAL: Posterior lateral right leg with an ulceration. Wound VAC in place. NEURO: Alert & Oriented x4 to person, place, time, situation. Moves all ext x4 PSYCH: Appropriate mood and affect. Pt update on day of discharge The patient was excited about going home. She said that she will try to get established with a primary care doctor. She says the hydralazine has been working for her blood pressure. Discussed with nursing. Hospital Course Ulcerative lesion Involving the right lower extremity. This has been present for 2-3 months. Patient admits she has not been compliant with getting appropriate wound care. X-ray shows no sign of osteomyelitis. MRI showed: There is subcutaneous edema and enhancement along the lateral aspect of the distal leg adjacent to the area of open wound characteristic of a cellulitis; There is subtle edema and enhancement of the superficial fibers of the peroneus longus muscle and there is mild edema and enhancement extending between the peroneal muscles, the soleus and lateral head of gastrocnemius muscle; This edema and enhancement abuts the posterior aspect of the fibula. However, there are no findings to indicate osteomyelitis; No drainable fluid collection or abscess is present. Wound culture grew MSSA. Sensitive to Levaquin which the patient has been started on. Podiatry was consulted. S/P I&D and wound vac placement. ID was consulted and recommended IV antibiotics upon discharge. The pt refused to go home with IV antibiotics. ID was contacted again and recommended Keflex for three weeks if the pt refused IV antibiotics. Wound care removed the wound vac and the pt will be discharged with dressing changes. She will follow up with podiatry as an outpt. Chest pressure Slight, and chronic in nature. The pt says she has had this when her diltiazem dose was changed. EKG consistent with early repolarization. CXR unremarkable. Troponins were negative. She was monitored on telemetry. Her diltiazem dose was changed to her home regimen. Her chest pressure resolved. She will follow up with her PCP. Hypertension Blood pressure poorly controlled. We continued diltiazem and HCTZ. We increased lisinopril. Her blood pressure improved with addition on hydralazine. She will follow up with her PCP. Diabetes mellitus Glucose well controlled. She will continue her home regimen upon discharge. Hypokalemia Improved with repletion. Pt Condition on Discharge: Stable Discharge Disposition: Disch w/ Home Health Serv Discharge Time: > 30 minutes Discharge Instructions DIET: Follow Instructions for: Diabetic Diet Activities you can perform: See Additionl Instruction Follow up Referrals: Appointment for Follow Up PCP Follow-up - 1 Week PCP Follow-up Podiatry - 1 Week @ [facility] with Noman Oates DPM New Medications: Cephalexin (Keflex) 500 Mg Capsule 500 MG PO QID for Infection for 21 Days, CAP 0 Refills Hydralazine HCl (Hydralazine HCl) 25 Mg Tablet 25 MG PO Q8HR for Blood Pressure Management, #90 TAB Lisinopril (Lisinopril) 20 Mg Tab 20 MG PO BID for Blood Pressure Management, #60 TAB Continued Medications: Diltiazem ER 24 HR (Diltiazem ER 24 HR) 180 Mg Xiomara 180 MG PO DAILY, #30 TAB 0 Refills Hydrochlorothiazide (Hydrochlorothiazide) 50 Mg Tab 50 MG PO DAILY, #60 TAB 0 Refills Insulin Glargine Inj (Lantus Inj) 1,000 Unit/10 Ml Vial 34 UNITS SQ HS for Blood Sugar Management, VIAL 0 Refills Insulin Lispro (Human) Inj (Humalog Inj) 1,000 Unit/10 Ml Vial 2-12 UNITS SQ ACHS for Blood Sugar Management, #1 VIAL 0 Refills Max dose at bedtime:( )units; sugars < 70,(0)units; sugars 150-199,(2)units; sugars 200-249,(4)units; sugars 250-299,(7)units; sugars 300-349,(10)units; sugars more than 349,(12)units. Levothyroxine (Synthroid) 175 Mcg Tab 175 MCG PO DAILY for Thyroid, #30 TAB 0 Refills Metformin (Metformin) 1,000 Mg Tab 1000 MG PO BIDPC for Blood Sugar Management, #60 TAB 0 Refills Discontinued Medications: Quinapril (Quinapril) 5 Mg Tab 5 MG PO BID, #60 TAB 0 Refills Anthony Ramirez DO May 30, 2017 11:53
[2017-05-30] MEDS ORDERED: POTASSIUM CHLORIDE 25 MEQ EFFERVESCENT TAB PO ONE (12:00)
[2017-05-30] MEDS: LEVOFLOXACIN 750 MG PREMIX INJ 150 ML IV SCH (12:09)
[2017-05-30] MEDS ORDERED: CEPHALEXIN MONOHYDRATE 500 MG CAP PO ONE (13:00)
--- NOTE | 2017-05-30 16:44 | HHI.PR ---
Subjective Remarks The patient wanted to go home. She did not want to have IV antibiotics when she was discharged. She denied any chest pain or pressure. She had family at bedside. Discussed with nursing. Objective Vitals Vital Signs Date Time Temp Pulse Resp B/P (MAP) Pulse Ox O2 Delivery O2 Flow Rate FiO2 05/30/17 16:36 97.2 58 20 182/82 (115) 97 05/30/17 12:15 98.3 55 18 191/81 (117) 94 05/30/17 11:00 57 05/30/17 08:16 98.1 56 18 180/78 (112) 97 05/30/17 04:00 97.9 57 20 177/79 (111) 98 05/30/17 00:30 93 05/30/17 00:00 64 05/30/17 00:00 98.1 74 18 125/60 (81) 90 05/29/17 20:15 65 05/29/17 20:00 97.0 67 18 178/75 (109) 99 I/O 05/29/17 05/29/17 05/29/17 05/30/17 05/30/17 05/30/17 07:00 15:00 23:00 07:00 15:00 23:00 Intake Total 1090 ml 240 ml 720 ml Balance 1090 ml 240 ml 720 ml Intake Oral 940 ml 240 ml 720 ml IV Total 150 ml # Voids 3 1 5 3 # Bowel Movements 1 0 Result Diagram: 05/30/17 0630 05/30/17 0630 Imaging Last Impressions Chest X-Ray 05/29/17 0000 Signed Impressions: Service Date/Time: Monday, May 29, 2017 08:46 - CONCLUSION: No acute cardiopulmonary abnormality is identified. Phil Wiggins MD Ankle MRI 05/25/17 0000 Signed Impressions: Service Date/Time: Thursday, May 25, 2017 17:34 - CONCLUSION: 1. There is subcutaneous edema and enhancement along the lateral aspect of the distal leg adjacent to the area of open wound characteristic of a cellulitis. 2. There is subtle edema and enhancement of the superficial fibers of the peroneus longus muscle and there is mild edema and enhancement extending between the peroneal muscles, the soleus and lateral head of gastrocnemius muscle. This edema and enhancement abuts the posterior aspect of the fibula. However, there are no findings to indicate osteomyelitis. 3. No drainable fluid collection or abscess is present. Phil Wiggins MD Tibia/Fibula X-Ray 05/24/17 0000 Signed Impressions: Service Date/Time: Wednesday, May 24, 2017 19:30 - CONCLUSION: 1. No plain radiograph evidence for osteomyelitis as questioned. Kenney Bolanos MD Objective Remarks GENERAL: This is a well-nourished, well-developed patient, in no apparent distress. CARDIOVASCULAR: Normal rate and regular rhythm without murmurs, gallops, or rubs. RESPIRATORY: Good respiratory efforts. Breath sounds equal and clear to auscultation bilaterally. GASTROINTESTINAL: Abdomen soft, non-tender, non-distended. Normal active bowel sounds. MUSCULOSKELETAL: Posterior lateral right leg with an ulceration. Wound VAC in place. NEURO: Alert & Oriented x4 to person, place, time, situation. Moves all ext x4 PSYCH: Appropriate mood and affect. Procedures 05/26/17 I&D right ankle ulcer with wound VAC application Medications and IVs Current Medications Medications (Trade) Dose Ordered Sig/Kevin Route Start Time Stop Time Status Last Admin (D50w (Vial) Inj) 50 ml UNSCH PRN IV PUSH 05/24/17 22:00 (Glucagon Inj) 1 mg UNSCH PRN OTHER 05/24/17 22:00 (NovoLOG SUPPLEMENTAL SCALE) 1 ACHS SLIDING SCALE SQ 05/25/17 08:00 05/29/17 20:46 (NS Flush) 2 ml UNSCH PRN IV FLUSH 05/24/17 22:00 (NS Flush) 2 ml BID IV FLUSH 05/25/17 09:00 05/30/17 08:49 (Zofran Inj) 4 mg Q6H PRN IVP 05/24/17 22:00 (Heparin Inj) 5,000 units Q12H SQ 05/25/17 09:00 05/30/17 08:49 (Tylenol) 650 mg Q6H PRN PO 05/24/17 22:00 05/26/17 14:06 (Morphine Inj) 2 mg Q3H PRN IV PUSH 05/24/17 22:00 05/29/17 14:33 (Donna-Colace) 1 tab BID PO 05/25/17 09:00 05/29/17 08:22 (Milk Of Magnesia Liq) 30 ml Q12H PRN PO 05/24/17 22:00 (Senokot) 17.2 mg Q12H PRN PO 05/24/17 22:00 (Dulcolax Supp) 10 mg DAILY PRN RECTAL 05/24/17 22:00 (Lactulose Liq) 30 ml DAILY PRN PO 05/24/17 22:00 (Hydrodiuril) 50 mg DAILY PO 05/25/17 09:00 05/30/17 08:49 (Levemir Inj) 34 units HS SQ 05/24/17 22:00 05/29/17 20:46 (Glucophage) 1,000 mg BIDPC PO 05/25/17 09:00 05/30/17 08:49 (Synthroid) 150 mcg DAILY@0600 PO 05/25/17 06:00 05/30/17 05:15 (Synthroid) 25 mcg DAILY@0600 PO 05/25/17 06:00 05/30/17 05:15 (Gentamicin 0.1% Cream) 1 applic DAILY TOPICAL 05/25/17 15:45 05/29/17 08:26 (Motrin) 600 mg Q8H PRN PO 05/27/17 11:30 05/30/17 09:00 (Vasotec Inj) 1.25 mg Q6H PRN IV PUSH 05/27/17 16:15 05/29/17 12:07 (Tylenol-Codeine #3) 1 tab Q6H PRN PO 05/28/17 21:45 05/29/17 20:55 (Cardizem Cd) 180 mg DAILY PO 05/30/17 09:00 05/30/17 08:48 (Prinivil) 20 mg BID PO 05/29/17 21:00 05/30/17 08:48 A/P Problem List: (1) Diabetic foot infection ICD Code: E11.69 - Type 2 diabetes mellitus with other specified complication; L08.9 - Local infection of the skin and subcutaneous tissue, unspecified (2) HTN (hypertension) ICD Code: I10 - Essential (primary) hypertension (3) DM (diabetes mellitus) ICD Code: E11.9 - Type 2 diabetes mellitus without complications Assessment and Plan Ulcerative lesion Right lower extremity. This has been present for 2-3 months. Patient admits she has not been compliant with getting appropriate wound care. X-ray shows no sign of osteomyelitis. Wound culture grew MSSA. Sensitive to Levaquin which the patient has been on. Appreciate podiatry recommendations. S/P I&D. ID consult appreciated. The pt refused home IV antibiotics. - Wound vac to be changed per podiatry. - Case management following and setting up home health care. - ID recommended course of PO Keflex as pt refused IV antibiotics. Chest pressure Slight, chronic. EKG consistent with early repolarization. CXR unremarkable. Trops negative. Resolved. - telemetry. Hypertension Blood pressure poorly controlled. - Continue diltiazem, HCTZ, lisinopril. - add hydralazine 25 mg q8h. Diabetes mellitus Glucose well controlled. - Monitor Accu-Cheks and cover with sliding scale insulin. - Continue Levemir, metformin. Hypokalemia Likely related to HCTZ. - monitor and replete. DVT prophylaxis: Heparin Discharge Planning D/c when [facility] arranged Anthony Ramirez DO May 30, 2017 16:44
[2017-05-30] MEDS: hydrALAZINE HCL 25 MG TAB PO SCH ×2 (17:31→22:44)
[2017-05-30] MEDS ORDERED: CEPHALEXIN MONOHYDRATE 500 MG CAP PO SCH ×2 (18:00→19:00)
[2017-05-30] MEDS: INSULIN DETEMIR 100 UNITS/ML VIAL SQ SCH (20:43)
[2017-05-30] MEDS: ACETAMINOPHEN/CODEINE 300 MG/30 MG TAB PO PRN (22:43)
[2017-05-30] MEDS: CEPHALEXIN MONOHYDRATE 500 MG CAP PO SCH (22:44)
[2017-05-31 00:40] VITALS: BP 145/66; PULSE 66; RESP 16; TEMP 98.6; O2SAT 98
[2017-05-31 03:15] VITALS: BP 143/67; PULSE 64; RESP 20; TEMP 97.7; O2SAT 97
[2017-05-31] MEDS: hydrALAZINE HCL 25 MG TAB PO SCH (06:24)
[2017-05-31] MEDS: LEVOTHYROXINE SODIUM 25 MCG TAB PO SCH (06:24)
[2017-05-31] MEDS: LEVOTHYROXINE SODIUM 150 MCG TAB PO SCH (06:25)
[2017-05-31] MEDS: CEPHALEXIN MONOHYDRATE 500 MG CAP PO SCH ×2 (06:25→12:04)
[2017-05-31 07:59] VITALS: BP 128/58; PULSE 72; RESP 18; TEMP 98.1; O2SAT 99
[2017-05-31] MEDS: metFORMIN HCL 500 MG TAB PO SCH (08:31)
[2017-05-31] MEDS: LISINOPRIL 20 MG TAB PO SCH (08:32)
[2017-05-31] MEDS: HYDROCHLOROTHIAZIDE 50 MG TAB PO SCH (08:32)
[2017-05-31] MEDS: HEPARIN SODIUM - SQ 10,000 UNITS/ML VIAL SQ SCH (08:32)
[2017-05-31] MEDS: DOCUSATE SODIUM 50 MG/SENNA 8.6 MG TAB PO SCH (08:33)
[2017-05-31] MEDS: SODIUM CHLORIDE 0.9% FLUSH 10 ML FLUSH IV FLUSH SCH (08:33)
[2017-05-31] MEDS: DILTIAZEM-CD 180 MG CAP ER PO SCH (08:33)
[2017-05-31] MEDS: INSULIN ASPART SUPPLEMENTAL SCALE SQ SCH ×2 (08:34→12:05)
[2017-05-31] MEDS: GENTAMICIN SULFATE 0.1% CREAM 15 GM TOPICAL SCH (08:35)
[2017-05-31] MEDS ORDERED: HYDR-3799 PO (10:04)
--- NOTE | 2017-05-31 13:51 | PD.WCN.NOT ---
Wound Consult Description: Assistance with wound VAC change Communicated with: [facility] [address] [place] [address], Recommendation: 1) Cleanse right lower extremity with normal saline pat dry. 2) Skin prep periwound.Apply Puracol AG to wound base cover with calcium alginate cut to fit wound base. 3) Secure with boarder gauze change every 5-7 days or as needed for dislodgement /exudate. 4) Follow up with out patient wound care Additional Information: Patient was seen today on [address] [place] [address] by group underwriter and [facility] [address] [place] [address] for wound vac change.Patient alert and oriented x3 ambulate with no assist.Dressing removed from R lateral tibial area to expose a open wound measuring 5.1cm x 5.2cm x 0.2cm wound base is 100% granulated beefy red tissue scant bloody drainage.No signs or symptoms of infection.Wound cleansed with normal saline pat dry.Skin prep applied to periwound.Puracol AG applied to wound base covered with calcium alginate AG cut to fit wound base.Secured with boarder gauze signed and dated.Patient to follow up with next week. Oskar Santacruz [facility] May 31, 2017 13:51
== END 2017-05-31 12:20 | disposition home or self-care (01) | DRG 623 ==
LOC: NEPD 16:11 → NEDA 21:52 → NEPGCP 05-25 02:55 → OBSVTOIN 05-26 12:53 → N05A 05-28 16:44
PROVIDERS: ADMIT Hospitalist; ATTEND Hospitalist
PROC: 0JDQ0ZZ Extraction of Right Foot Subcutaneous Tissue and Fascia, Open Approach (ICD-10-PCS; 2017-05-26)
PROC: 2W1QX6Z Compression of Right Lower Leg using Pressure Dressing (ICD-10-PCS; 2017-05-26)
PROC: 0JBQ0ZZ Excision of Right Foot Subcutaneous Tissue and Fascia, Open Approach (ICD-10-PCS; principal; 2017-05-26 09:32)
DX: E11.622 Type 2 diabetes mellitus with other skin ulcer (principal); L97.319 Non-pressure chronic ulcer of right ankle with unspecified severity; L03.115 Cellulitis of right lower limb; Z68.41 Body mass index [BMI] 40.0-44.9, adult; B95.61 Methicillin susceptible Staphylococcus aureus infection as the cause of diseases classified elsewhere; E66.01 Morbid (severe) obesity due to excess calories; Z79.84 Long term (current) use of oral hypoglycemic drugs; Z79.4 Long term (current) use of insulin; Z91.19 Patient's noncompliance with other medical treatment and regimen; E87.6 Hypokalemia; I10 Essential (primary) hypertension; R07.89 Other chest pain
CPT/HCPCS: 71045; 73590; 73723; 80048; 80053; 82948; 83735; 84484; 85025; 85027; 85610; 85652; 85730; 86140; 86403; 87015; 87070; 87102; 87116; 87147; 87186; 87205; 87206; 88305; 93005; 96366; 96372; 96375; 96376; A9579; G0378; J0360; J0692; J1644; J1815; J1956; J2270; J2405; J3010; J3370; J7040; J7050

== ENCOUNTER 2017-07-26 08:44 | Emergency (ER) | payer SELFPAY ==
[~2017-07-26] VITALS: Ht 167.6 cm; Wt 90.5 kg
[~2017-07-26 08:44] MED LIST: CEPH-460 PO; DILT0.05 PO; HUMALOG SQ; HYDR-3799 PO; HYDR50TA3 PO; LANTUS2P SQ; LISI-515 PO; METF1000 PO; SYNT175T PO
[2017-07-26 08:49] VITALS: BP 196/93; PULSE 70; RESP 16; TEMP 97.4; O2SAT 99
[2017-07-26] MEDS ORDERED: GABA100C4 PO ×2 (09:22→09:23)
--- NOTE | 2017-07-26 09:22 | PD ---
HPI Chief Complaint: Pain: Acute or Chronic Time Seen by Provider: 09:03 Travel History International Travel<30 days: No Contact w/Intl Traveler<30days: No Traveled to known affect area: No History of Present Illness HPI 57-year-old female notes ongoing pain with her right ankle with an associated wound since May. She states she had surgery with Dr. Lund at the end of May. She states she called to get an appointment but it is not until next week and she is wanting something for pain to hold her over. She denies any fever. She states her sugars have been normal and yesterday was 140. She denies any trauma or other concurrent complaints. Quality pain is sharp. Severity is moderate. Pain is worse with movement. She states the wound is healing appropriately. PFSH Past Medical History Asthma: No Blood Disorders: No Heart Rhythm Problems: No Cancer: No Cardiovascular Problems: Yes (ENLARGED HEART) High Cholesterol: No Chemotherapy: No Chest Pain: No Congestive Heart Failure: No COPD: No Diabetes: Yes Endocrine: Yes Genitourinary: No Immune Disorder: No Musculoskeletal: No Neurologic: No Psychiatric: No Reproductive: No Respiratory: No Radiation Therapy: No Sleep Apnea: No Thyroid Disease: Yes Social History Tobacco Use: No Substance Use: No Allergies-Medications (Allergen,Severity, Reaction): Coded Allergies: amlodipine (Verified Allergy, Unknown, 05/24/17) Reported Meds & Prescriptions Reported Meds & Active Scripts Active Gabapentin 100 Mg Cap 100 Mg PO HS PRN Hydralazine HCl 25 Mg Tablet 25 Mg PO Q8HR Keflex (Cephalexin) 500 Mg Capsule 500 Mg PO QID 21 Days Lisinopril 20 Mg Tab 20 Mg PO BID Reported Diltiazem ER 24 HR 180 Mg Xiomara 180 Mg PO DAILY Lantus Inj (Insulin Glargine) 1,000 Unit/10 Ml Vial 34 Units SQ HS Humalog Inj (Insulin Human Lispro) 1,000 Unit/10 Ml Vial 2-12 Units SQ ACHS Max dose at bedtime:( )units; sugars < 70,(0)units; sugars 150-199,(2)units; sugars 200-249,(4)units; sugars 250-299,(7)units; sugars 300-349,(10)units; sugars more than 349,(12)units. Hydrochlorothiazide 50 Mg Tab 50 Mg PO DAILY Synthroid (Levothyroxine Sodium) 175 Mcg Tab 175 Mcg PO DAILY Metformin (Metformin HCl) 1,000 Mg Tab 1,000 Mg PO BIDPC Review of Systems Except as stated in HPI: all other systems reviewed are Neg Physical Exam Narrative GENERAL: 55-year-old female in no apparent distress SKIN: Patient has 2 right lateral lower leg above ankle a 4 x 6 cm healing lesion without active drainage or surrounding cellulitic changes HEAD: Atraumatic. Normocephalic. EYES: Pupils equal and round. No scleral icterus. No injection or drainage. ENT: No nasal bleeding or discharge. Mucous membranes pink and moist. NECK: Trachea midline. CARDIOVASCULAR: Regular rate and rhythm. RESPIRATORY: No accessory muscle use. Clear to auscultation. Breath sounds equal bilaterally. MUSCULOSKELETAL: No obvious deformities. No clubbing. No cyanosis. Mild pain with palpation of right ankle wound without joint pain, neurovascularly intact, no lacerations over, compartments soft. NEUROLOGICAL: Awake and alert. No obvious cranial nerve deficits. Motor grossly within normal limits. Normal speech. PSYCHIATRIC: Appropriate mood and affect; insight and judgment normal. Data Data Last Documented VS Vital Signs Date Time Temp Pulse Resp B/P (MAP) Pulse Ox O2 Delivery O2 Flow Rate FiO2 07/26/17 08:49 97.4 70 16 196/93 (127) 99 Orders Orders Blood Glucose (07/26/17 09:10) Ed Discharge Order (07/26/17 09:54) MDM Medical Decision Making Medical Screen Exam Complete: Yes Emergency Medical Condition: Yes Medical Record Reviewed: Yes (Past history confirmed) Differential Diagnosis Wound check, neuropathy pain, osteomyelitis, cellulitis Narrative Course Wound is well appearing. Sugar is within normal limits. Patient declined x- ray imaging. Requesting gabapentin for pain which will be given and advised to call Dr. Lund to try to move up appointment. Given return instructions. Diagnosis Primary Impression: Wound of right leg Qualified Codes: S81.801A - Unspecified open wound, right lower leg, initial encounter Patient Instructions: General Instructions Additional Instructions: return as needed, tylenol as needed, follow with dr lund Med/Other Pt SpecificInfo: Prescription(s) given Scripts Gabapentin (Gabapentin) 100 Mg Cap 100 MG PO HS Y for PAIN SCALE 1 TO 10, #10 CAP 0 Refills Prov: Annika Lewis MD 07/26/17 Disposition: 01 DISCHARGE HOME Condition: Stable Annika Lewis MD Jul 26, 2017 09:22
== END 2017-07-26 10:27 | disposition home or self-care (01) ==
LOC: NEPE 08:44
DX: S81.801A Unspecified open wound, right lower leg, initial encounter (principal); E07.9 Disorder of thyroid, unspecified; E11.9 Type 2 diabetes mellitus without complications; X58.XXXA Exposure to other specified factors, initial encounter; Z79.4 Long term (current) use of insulin
CPT/HCPCS: 99283